=== PATIENT | female | born 1945 | race Asian ===

== ENCOUNTER → 2018-07-29 | Outpatient (CLI) | payer MEDICARE, OTHER | LOC: MC.RAD 13:40 | DX: Z12.31 Encounter for screening mammogram for malignant neoplasm of breast (principal); C50.411 Malignant neoplasm of upper-outer quadrant of right female breast ==

== ENCOUNTER → 2019-04-13 | Day surgery (SDC) | payer MEDICARE, OTHER ==
[2019-04-13] VITALS (10 sets, daily range): BP systolic 116–144; BP diastolic 66–88; PULSE 73–82; TEMP 97.8–97.9
[~2019-04-13] VITALS: Ht 154.9 cm; Wt 44.0 kg
[~2019-04-13] MED LIST: ASPIRIN 81M81 MG/TA2 PO; CATAPRES 0.1MG0.1 MG PO; CLARITIN 1010 MG/TAB PO; COLACE 100100 MG/CAP PO; GLUCOPHAGE XR500 M1 PO; LIPITOR20 MG PO; MICARDIS80 MG PO; NORVASC 10MG10 MG PO; PAXIL 20MG20 MG PO; PRIL40 PO
--- NOTE | 2019-04-13 09:50 | NUR ---
PATIENT TO BAY 3 PER CART ACCOMPANIED BY ENDO STAFF. PATIENT TRANSFERRED FROM CART TO CHAIR WITH 2 ASSIST. ALITTLE UNSTEADY GAIT. PATIENT DROWSY. PT RESPONDS WITH EYES CLOSED BUT DOES ANSWER QUESTIONS. MONITORS APPLIED. VSS.
--- NOTE | 2019-04-13 10:00 | NUR ---
VSS. PATIENT ALITTLE MORE ALERT. PATIENT ABLE TO SWALLOW. PATIENT DENIES NAUSEA AND DISCOMFORT. PATIENT GIVEN GRAPE JUICE AND PUDDING.
--- NOTE | 2019-04-13 10:15 | NUR ---
VSS. PATIENT DENIES NAUSEA AND DISCOMFORT. PATIENT DRINKING JUICE AND EATING PUDDING. PATIENT MORE ALERT.
--- NOTE | 2019-04-13 10:30 | NUR ---
VSS. PATIENT STATES THAT SHE DOES NOT HAVE SOMEONE TO TAKE HER HOME. SHE WILL NEED TO DRIVE HERSELF HOME. PATIENT DENIES NAUSEA AND DISCOMFORT.
--- NOTE | 2019-04-13 11:00 | NUR ---
VSS. PATIENT DRINKING JUICE AND EATING A MUFFIN. PATIENT ALERT AND TALKING WITH STAFF.
--- NOTE | 2019-04-13 11:28 | NUR ---
VSS. PATIENT ENCOURAGED TO CONTINUE TO DRINK FLUIDS. PATIENT RESTS WITH EYES CLOSED WHEN NO ONE IS IN ROOM.
--- NOTE | 2019-04-13 12:00 | NUR ---
VSS. PATIENT GIVEN VERBAL AND WRITTEN DISCHARGE INSTUCTIONS. PATIENT VOICED UNDERSTANDING. PATIENT GETS DRESSED AND WILL WAIT IN ROOM UNTIL ABLE TO LEAVE.
--- NOTE | 2019-04-13 12:24 | NUR ---
VSS. PATIENT DENIES NAUSEA AND DISCOMFORT. IV DC'D INTACT. PATIENT CONTINUES TO STATE THAT SHE DOES NOT HAVE A RIDE HOME. SHE WILL NEED TO DRIVE.
--- NOTE | 2019-04-13 13:30 | NUR ---
VSS. PATIENT HAS CHANGED CLOTHES AND WAITING. PATIENT HAS BEEN UP TO THE BATHROOM AND VOIDED WITHOUT PROBLEMS. DR PUENTE IN ROOM AND TALKING WITH PATIENT. ENDO STAFF AND DR PUENTE HAVE SPOKEN USING THE LANGUAGE LINE WITH PATIENT AND PATIENT IS WILLING TO STAY THE NIGHT SINCE SHE DROVE HERSELF AND HAS NO RIDE. HOUSE SUPERVISER CONTACTED AND ROOM 348 HAS BEEN GIVEN.
== END ==
LOC: SDCO 06:34
DX: Z12.11 Encounter for screening for malignant neoplasm of colon (principal); D12.2 Benign neoplasm of ascending colon; K55.20 Angiodysplasia of colon without hemorrhage; K62.89 Other specified diseases of anus and rectum; K63.3 Ulcer of intestine; K21.9 Gastro-esophageal reflux disease without esophagitis; D13.1 Benign neoplasm of stomach; K29.50 Unspecified chronic gastritis without bleeding; K52.9 Noninfective gastroenteritis and colitis, unspecified; K59.00 Constipation, unspecified; K44.9 Diaphragmatic hernia without obstruction or gangrene; Z88.0 Allergy status to penicillin; Z79.82 Long term (current) use of aspirin; Z79.84 Long term (current) use of oral hypoglycemic drugs; Z90.710 Acquired absence of both cervix and uterus; Z85.3 Personal history of malignant neoplasm of breast; Z90.10 Acquired absence of unspecified breast and nipple
CPT/HCPCS: J2250; J3010; J7030

== ENCOUNTER → 2019-07-19 | Outpatient (CLI) | payer MEDICARE, OTHER | LOC: MC.RAD 15:41 | DX: Z12.31 Encounter for screening mammogram for malignant neoplasm of breast (principal); N64.89 Other specified disorders of breast; C50.411 Malignant neoplasm of upper-outer quadrant of right female breast ==

== ENCOUNTER → 2019-07-21 | Outpatient (CLI) | payer MEDICARE, OTHER | LOC: MC.RAD 10:55 | DX: Z85.3 Personal history of malignant neoplasm of breast (principal) | CPT/HCPCS: G0279 ==

== ENCOUNTER → 2019-08-02 | Outpatient (CLI) | payer MEDICARE, OTHER | LOC: COL.RAD 14:40 | DX: M50.321 Other cervical disc degeneration at C4-C5 level (principal); E04.9 Nontoxic goiter, unspecified; G89.29 Other chronic pain ==

== ENCOUNTER 2020-05-31 12:05 | Emergency (ER) | payer MEDICARE, OTHER ==
[~2020-05-31] VITALS: Ht 152.4 cm; Wt 61.4 kg
[2020-05-31 12:15] VITALS: TEMP 98.2
[2020-05-31 13:19] LABS: BASO % 0.3 % (0.0-2.0); EOS # 0.1 (0.0-0.7); EOS % 1.4 % (0-4.0); GRAN # 1.5 (1.4-6.5); GRAN % 40.8 % (42.2-75.2); LYMPH # 1.6 (1.2-3.4); LYMPH % 44.7 % (20.0-51.0); MEAN CELL VOLUME 82 fl (80.0-100.0); MEAN CORPUSCULAR HEMOGLOBIN 29 pg (27.0-31.0); MEAN CORPUSCULAR HGB CONC 35 g/dl (33.0-37.0); MEAN PLATELET VOLUME 9.7 fl (7.4-10.4); MONO # 0.5 (0.1-0.6); MONO % 12.5 % (1.7-9.3); PLATELET COUNT 236 K/mm3 (130-400); RED BLOOD COUNT 3.83 M/mm3 (4.10-5.30); REDCELL DISTRIBUTION WIDTH-CV 12.9 % (11.5-14.5)
[2020-05-31 13:20] LABS: HEMATOCRIT 31.4 % (37.0-47.0)
[2020-05-31 13:41] LABS: ALANINE AMINOTRANSFERASE 29 U/L (4-34); ALBUMIN 3.9 gm/dL (3.5-5.0); ALKALINE PHOSPHATASE 95 U/L (50-136); ANION GAP 5 mmol/L (7-16); AST,SGOT 36 U/L (15-37); BILIRUBIN,TOTAL 0.9 mg/dL (0.0-1.0); BLOOD UREA NITROGEN 12 mg/dL (7-17); CALCIUM 10.1 mg/dL (8.4-10.2); CARBON DIOXIDE 34 mmol/L (22-30); CHLORIDE 102 mmol/L (98-107); CREATININE, serum 0.57 (0.52-1.25); GLUCOSE 106 mg/dL (74-106); POTASSIUM 3.2 mmol/L (3.4-5.0); SODIUM 141 mmol/L (137-145)
[2020-05-31 13:42] LABS: ERYTHROCYTE SEDIMENTATION RATE 7 mm/hr (0-30)
[2020-05-31 13:44] LABS: C-REACTIVE PROTEIN < 0.5 mg/dL (0.0-0.9)
[2020-05-31 13:55] LABS: TROPONIN-I < 0.012 ng/mL (0.000-0.035)
[2020-05-31] MEDS ORDERED: K-TAB20 PO (14:07)
[2020-05-31 14:09] LABS: TSH w REFLEX 0.015 uIU/mL (0.465-4.680)
[2020-05-31 14:58] LABS: COLLECTION METHOD CLEAN CATCH
[2020-05-31 15:07] LABS: PH 7 (5-8); SQUAMOUS EPITHELIAL 0-2 /hpf; URINE APPEARANCE Clear; URINE BACTERIA None Seen /hpf; URINE BILIRUBIN Negative (NEGATIVE); URINE BLOOD Negative (NEGATIVE); URINE COLOR Straw; URINE GLUCOSE Negative (NEGATIVE); URINE KETONE Negative (NEGATIVE); URINE LEUKOCYTE ESTERASE Negative (NEGATIVE); URINE NITRATE Negative (NEGATIVE); URINE PROTEIN(semi-quant) Negative (NEGATIVE); URINE RBC None Seen /hpf; URINE UROBILINOGEN Negative (NEGATIVE)
[2020-05-31] MEDS ORDERED: INDERAL60 MG PO (15:18)
[2020-05-31 15:49] VITALS: BP 139/74; PULSE 85
== END 2020-05-31 15:40 | disposition home or self-care (01) ==
LOC: COL.ER 12:05
PROVIDERS: Emergency Medicine
DX: E87.6 Hypokalemia (principal); R10.13 Epigastric pain; R94.6 Abnormal results of thyroid function studies; I10 Essential (primary) hypertension; E05.90 Thyrotoxicosis, unspecified without thyrotoxic crisis or storm; Z88.0 Allergy status to penicillin; Z79.82 Long term (current) use of aspirin; Z79.84 Long term (current) use of oral hypoglycemic drugs
CPT/HCPCS: J1885

== ENCOUNTER → 2020-08-22 | Outpatient (CLI) | payer MEDICARE, OTHER ==
[~2020-08-22] MED LIST changes: +INDERAL60 MG PO; +K-TAB20 PO
== END ==
LOC: MC.RAD 13:09
DX: Z12.31 Encounter for screening mammogram for malignant neoplasm of breast (principal); Z90.11 Acquired absence of right breast and nipple; Z80.3 Family history of malignant neoplasm of breast

== ENCOUNTER 2020-10-14 14:07 | Emergency (ER) | payer MEDICARE, OTHER ==
[~2020-10-14] VITALS: Ht 154.9 cm; Wt 54.5 kg
[2020-10-14 14:10] VITALS: BP 122/76; TEMP 97.9
[2020-10-14 14:23] LABS: COLLECTION METHOD CLEAN CATCH
[2020-10-14 14:32] LABS: PH 7 (5-8); SQUAMOUS EPITHELIAL 0-2 /hpf; URINE APPEARANCE Hazy; URINE BACTERIA None Seen /hpf; URINE BILIRUBIN Negative (NEGATIVE); URINE BLOOD Negative (NEGATIVE); URINE COLOR Yellow; URINE GLUCOSE Negative (NEGATIVE); URINE KETONE Negative (NEGATIVE); URINE LEUKOCYTE ESTERASE Negative (NEGATIVE); URINE NITRATE Negative (NEGATIVE); URINE PROTEIN(semi-quant) Negative (NEGATIVE); URINE RBC 0-2 /hpf; URINE UROBILINOGEN Negative (NEGATIVE)
[2020-10-14 14:42] LABS: BASO % 0.7 % (0.0-2.0); EOS # 0.1 (0.0-0.7); EOS % 1.1 % (0-4.0); GRAN # 2.1 (1.4-6.5); GRAN % 47.1 % (42.2-75.2); HEMOGLOBIN 12.2 g/dl (12.5-16.0); LYMPH # 1.9 (1.2-3.4); LYMPH % 43.2 % (20.0-51.0); MEAN CELL VOLUME 83 fl (80.0-100.0); MEAN CORPUSCULAR HEMOGLOBIN 28 pg (27.0-31.0); MEAN CORPUSCULAR HGB CONC 34 g/dl (33.0-37.0); MEAN PLATELET VOLUME 9.8 fl (7.4-10.4); MONO # 0.4 (0.1-0.6); MONO % 7.9 % (1.7-9.3); PLATELET COUNT 240 K/mm3 (130-400); RED BLOOD COUNT 4.36 M/mm3 (4.10-5.30); REDCELL DISTRIBUTION WIDTH-CV 13.9 % (11.5-14.5)
[2020-10-14 14:51] LABS: ALANINE AMINOTRANSFERASE 19 U/L (4-34); ALBUMIN 4.3 gm/dL (3.5-5.0); ALKALINE PHOSPHATASE 201 U/L (50-136); ANION GAP 7 mmol/L (7-16); AST,SGOT 33 U/L (15-37); BILIRUBIN,TOTAL 0.5 mg/dL (0.0-1.0); BLOOD UREA NITROGEN 16 mg/dL (7-17); CALCIUM 9.7 mg/dL (8.4-10.2); CARBON DIOXIDE 27 mmol/L (22-30); CHLORIDE 104 mmol/L (98-107); CREATININE, serum 0.59 (0.52-1.25); GLUCOSE 86 mg/dL (74-106); POTASSIUM 4.2 mmol/L (3.4-5.0); SODIUM 138 mmol/L (137-145); TOTAL PROTEIN 7.6 gm/dL (6.4-8.2)
[2020-10-14 15:03] LABS: TROPONIN-I < 0.012 ng/mL (0.000-0.035)
[2020-10-14 15:21] LABS: TSH w REFLEX 0.015 uIU/mL (0.465-4.680)
[2020-10-14 16:48] VITALS: PULSE 91
[2021-06-02] MEDS ORDERED: ATIVAN 0.50.5 MG/TAB PO (15:34)
== END 2020-10-14 16:48 | disposition home or self-care (01) ==
LOC: COL.ER 14:07
PROVIDERS: Emergency Medicine
DX: F22 Delusional disorders (principal); Z20.822 Contact with and (suspected) exposure to COVID-19; Z88.0 Allergy status to penicillin; Z79.82 Long term (current) use of aspirin; Z79.84 Long term (current) use of oral hypoglycemic drugs

== ENCOUNTER 2021-01-06 16:15 | Emergency (ER) | payer OTHER, MEDICARE ==
[~2021-01-06] VITALS: Ht 154.9 cm; Wt 60.9 kg
[2021-01-06 16:31] VITALS: TEMP 98
[2021-01-06] MEDS ORDERED: OPCON-A 0.027%-15 M1 OP (18:15)
[2021-01-06] MEDS ORDERED: AKTOB 5 ML5 ML OP (18:15)
[2021-01-06 18:23] VITALS: BP 128/77; PULSE 80
[2021-06-02] MEDS ORDERED: ATIVAN 0.50.5 MG/TAB PO (15:34)
== END 2021-01-06 18:23 | disposition home or self-care (01) ==
LOC: COL.ER 16:15
DX: H53.8 Other visual disturbances (principal)

== ENCOUNTER 2021-01-07 15:46 | Emergency (ER) | payer OTHER, MEDICARE ==
[~2021-01-07 15:46] MED LIST changes: +AKTOB 5 ML5 ML OP; +OPCON-A 0.027%-15 M1 OP
[2021-01-07 15:49] VITALS: TEMP 98.4
[2021-01-07 17:05] LABS: BASO % 0.6 % (0.0-2.0); EOS % 0.8 % (0-4.0); GRAN % 56.7 % (42.2-75.2); HEMATOCRIT 39.5 % (37.0-47.0); HEMOGLOBIN 13.4 g/dl (12.5-16.0); LYMPH # 1.7 (1.2-3.4); LYMPH % 31.9 % (20.0-51.0); MEAN CELL VOLUME 88 fl (80.0-100.0); MEAN CORPUSCULAR HEMOGLOBIN 30 pg (27.0-31.0); MEAN CORPUSCULAR HGB CONC 34 g/dl (33.0-37.0); MEAN PLATELET VOLUME 8.8 fl (7.4-10.4); MONO # 0.5 (0.1-0.6); MONO % 9.8 % (1.7-9.3); PLATELET COUNT 269 K/mm3 (130-400); RED BLOOD COUNT 4.48 M/mm3 (4.10-5.30); REDCELL DISTRIBUTION WIDTH-CV 13.2 % (11.5-14.5)
[2021-01-07 17:11] LABS: COLLECTION METHOD CLEAN CATCH
[2021-01-07 17:15] LABS: ALBUMIN 4.4 gm/dL (3.5-5.0); BILIRUBIN,TOTAL 0.3 mg/dL (0.0-1.0); CALCIUM 10.2 mg/dL (8.4-10.2); CREATININE, serum 0.61 (0.52-1.25); POTASSIUM 4.7 mmol/L (3.4-5.0); TOTAL PROTEIN 8.3 gm/dL (6.4-8.2)
[2021-01-07 17:17] LABS: PH 7 (5-8); SQUAMOUS EPITHELIAL 0-2 /hpf; URINE APPEARANCE Clear; URINE BACTERIA None Seen /hpf; URINE BILIRUBIN Negative (NEGATIVE); URINE BLOOD Negative (NEGATIVE); URINE COLOR Straw; URINE GLUCOSE Negative (NEGATIVE); URINE KETONE Negative (NEGATIVE); URINE LEUKOCYTE ESTERASE Negative (NEGATIVE); URINE NITRATE Negative (NEGATIVE); URINE PROTEIN(semi-quant) Negative (NEGATIVE); URINE RBC 0-2 /hpf; URINE UROBILINOGEN Negative (NEGATIVE)
[2021-01-07 20:27] VITALS: BP 139/78; PULSE 83
[2021-06-02] MEDS ORDERED: ATIVAN 0.50.5 MG/TAB PO (15:34)
== END 2021-01-07 20:16 | disposition home or self-care, planned readmission (81) ==
LOC: COL.ER 15:46
PROVIDERS: Family Medicine
DX: F41.9 Anxiety disorder, unspecified (principal); E05.90 Thyrotoxicosis, unspecified without thyrotoxic crisis or storm; Z87.891 Personal history of nicotine dependence; Z79.899 Other long term (current) drug therapy

== ENCOUNTER 2021-04-29 15:01 | Emergency (ER) | payer OTHER, MEDICARE ==
[~2021-04-29] VITALS: Ht 154.9 cm; Wt 54.5 kg
[2021-04-29 15:03] VITALS: TEMP 97.6
[2021-04-29 15:43] LABS: BASO % 0.6 % (0.0-2.0); EOS # 0.1 (0.0-0.7); EOS % 1.7 % (0-4.0); GRAN # 4.8 (1.4-6.5); GRAN % 72.9 % (42.2-75.2); HEMOGLOBIN 12.5 g/dl (12.5-16.0); LYMPH # 1.2 (1.2-3.4); LYMPH % 17.8 % (20.0-51.0); MEAN CELL VOLUME 87 fl (80.0-100.0); MEAN CORPUSCULAR HEMOGLOBIN 30 pg (27.0-31.0); MEAN CORPUSCULAR HGB CONC 35 g/dl (33.0-37.0); MEAN PLATELET VOLUME 8.8 fl (7.4-10.4); MONO # 0.5 (0.1-0.6); MONO % 6.8 % (1.7-9.3); PLATELET COUNT 279 K/mm3 (130-400); RED BLOOD COUNT 4.13 M/mm3 (4.10-5.30); REDCELL DISTRIBUTION WIDTH-CV 13.7 % (11.5-14.5)
[2021-04-29 15:46] LABS: COLLECTION METHOD CLEAN CATCH
[2021-04-29 15:49] LABS: ALBUMIN 3.7 gm/dL (3.4-4.8); BILIRUBIN,TOTAL 0.5 mg/dL (0.2-1.2); CALCIUM 7.3 mg/dL (8.4-10.2); CREATININE, serum 0.86 mg/dL (0.57-1.11); POTASSIUM 3.7 mmol/L (3.5-4.5); TOTAL PROTEIN 7.5 gm/dL (6.2-8.1)
[2021-04-29 15:55] LABS: MUCOUS Present /lpf; PH 8 (5-8); SQUAMOUS EPITHELIAL 0-2 /hpf; URINE APPEARANCE Hazy; URINE BACTERIA None Seen /hpf; URINE BILIRUBIN Negative (NEGATIVE); URINE BLOOD Negative (NEGATIVE); URINE COLOR Yellow; URINE GLUCOSE Negative (NEGATIVE); URINE KETONE Negative (NEGATIVE); URINE LEUKOCYTE ESTERASE Negative (NEGATIVE); URINE NITRATE Negative (NEGATIVE); URINE PROTEIN(semi-quant) Negative (NEGATIVE); URINE RBC None Seen /hpf; URINE UROBILINOGEN Negative (NEGATIVE)
[2021-04-29 16:01] LABS: HEMATOCRIT 35.8 % (37.0-47.0)
[2021-04-29 16:09] LABS: TSH w REFLEX 50.179 uIU/mL (0.350-4.940)
[2021-04-29] MEDS ORDERED: SYNTHROID0.112 MG/T PO (17:31)
[2021-04-29 17:35] VITALS: BP 138/82; PULSE 85
[2021-06-02] MEDS ORDERED: ATIVAN 0.50.5 MG/TAB PO (15:34)
== END 2021-04-29 18:08 | disposition home or self-care (01) ==
LOC: COL.ER 15:01
PROVIDERS: Emergency Medicine
DX: E89.0 Postprocedural hypothyroidism (principal); E87.1 Hypo-osmolality and hyponatremia; E87.8 Other disorders of electrolyte and fluid balance, not elsewhere classified; Z91.14 Patient's other noncompliance with medication regimen
CPT/HCPCS: J7120; Q9967

== ENCOUNTER 2021-05-05 08:28 | Emergency (ER) | payer MEDICARE, OTHER ==
[~2021-05-05] VITALS: Ht 154.9 cm; Wt 68.2 kg
[~2021-05-05 08:28] MED LIST changes: +SYNTHROID0.112 MG/T PO
[2021-05-05 08:40] VITALS: TEMP 97.2
[2021-05-05 09:16] LABS: COLLECTION METHOD CATHETER
[2021-05-05 09:29] LABS: PH 8 (5-8); SQUAMOUS EPITHELIAL None Seen /hpf; URINE APPEARANCE Clear; URINE BACTERIA None Seen /hpf; URINE BILIRUBIN Negative (NEGATIVE); URINE BLOOD Negative (NEGATIVE); URINE COLOR Straw; URINE GLUCOSE Negative (NEGATIVE); URINE KETONE Negative (NEGATIVE); URINE LEUKOCYTE ESTERASE Negative (NEGATIVE); URINE NITRATE Negative (NEGATIVE); URINE PROTEIN(semi-quant) Negative (NEGATIVE); URINE RBC None Seen /hpf; URINE UROBILINOGEN Negative (NEGATIVE)
[2021-05-05 09:40] LABS: BASO # 0.1 (0.0-0.2); BASO % 0.8 % (0.0-2.0); EOS # 0.1 (0.0-0.7); EOS % 1.3 % (0-4.0); GRAN # 4.7 (1.4-6.5); GRAN % 74.3 % (42.2-75.2); HEMOGLOBIN 12.6 g/dl (12.5-16.0); LYMPH # 1.1 (1.2-3.4); LYMPH % 17.6 % (20.0-51.0); MEAN CELL VOLUME 83 fl (80.0-100.0); MEAN CORPUSCULAR HEMOGLOBIN 30 pg (27.0-31.0); MEAN CORPUSCULAR HGB CONC 36 g/dl (33.0-37.0); MEAN PLATELET VOLUME 8.6 fl (7.4-10.4); MONO # 0.4 (0.1-0.6); MONO % 5.7 % (1.7-9.3); PLATELET COUNT 247 K/mm3 (130-400); RED BLOOD COUNT 4.21 M/mm3 (4.10-5.30)
[2021-05-05 09:41] LABS: HEMATOCRIT 35.1 % (37.0-47.0)
[2021-05-05 09:55] LABS: ALBUMIN 3.9 gm/dL (3.4-4.8); BILIRUBIN,TOTAL 1.1 mg/dL (0.2-1.2); CREATININE, serum 0.74 mg/dL (0.57-1.11); POTASSIUM 3.5 mmol/L (3.5-4.5); TOTAL PROTEIN 7.5 gm/dL (6.2-8.1)
[2021-05-05 11:33] VITALS: BP 139/85; PULSE 67
[2021-06-02] MEDS ORDERED: ATIVAN 0.50.5 MG/TAB PO (15:34)
== END 2021-05-05 11:33 | disposition home or self-care (01) ==
LOC: COL.ER 08:28
PROVIDERS: Personal Emergency Response Attendant
DX: R33.9 Retention of urine, unspecified (principal); E05.90 Thyrotoxicosis, unspecified without thyrotoxic crisis or storm; Z88.0 Allergy status to penicillin; Z79.890 Hormone replacement therapy
CPT/HCPCS: A4314

== ENCOUNTER 2021-05-05 15:25 | Emergency (ER) | payer OTHER, MEDICARE ==
[~2021-05-05] VITALS: Ht 154.9 cm; Wt 68.2 kg
[2021-05-05 16:06] VITALS: BP 125/77; PULSE 92; TEMP 98
[2021-06-02] MEDS ORDERED: ATIVAN 0.50.5 MG/TAB PO (15:34)
== END 2021-05-05 17:21 | disposition home or self-care (01) ==
LOC: COL.ER 15:25
DX: R33.9 Retention of urine, unspecified (principal); E05.90 Thyrotoxicosis, unspecified without thyrotoxic crisis or storm; Z88.0 Allergy status to penicillin; Z79.890 Hormone replacement therapy

== ENCOUNTER 2021-05-25 20:14 | Inpatient (IN) | payer MEDICARE, OTHER ==
[~2021-05-25] VITALS: Ht 154.9 cm; Wt 64.9 kg
[2021-05-25 21:06] LABS: BASO % 0.4 % (0.0-2.0); EOS % 0.1 % (0-4.0); GRAN # 6.7 K/mm3 (1.4-6.5); GRAN % 81.9 % (42.2-75.2); HEMOGLOBIN 10.5 g/dl (12.5-16.0); LYMPH # 0.9 K/mm3 (1.2-3.4); LYMPH % 10.9 % (20.0-51.0); MEAN CELL VOLUME 88 fl (80.0-100.0); MEAN CORPUSCULAR HEMOGLOBIN 31 pg (27.0-31.0); MEAN CORPUSCULAR HGB CONC 35 g/dl (33.0-37.0); MEAN PLATELET VOLUME 8.9 fl (7.4-10.4); MONO # 0.5 K/mm3 (0.1-0.6); MONO % 6.5 % (1.7-9.3); PLATELET COUNT 211 K/mm3 (130-400); REDCELL DISTRIBUTION WIDTH-CV 14.1 % (11.5-14.5)
[2021-05-25 21:10] LABS: HEMATOCRIT 29.9 % (37.0-47.0)
[2021-05-25 21:22] LABS: ALBUMIN 3.7 gm/dL (3.4-4.8); BILIRUBIN,TOTAL 1.3 mg/dL (0.2-1.2); CREATININE, serum 0.76 mg/dL (0.57-1.11); POTASSIUM 3.2 mmol/L (3.5-4.5); TOTAL PROTEIN 7.5 gm/dL (6.2-8.1)
[2021-05-25 21:29] LABS: TROPONIN-I 0.035 ng/mL (0.00-0.033)
[2021-05-26 00:52] VITALS: BP 122/74; PULSE 98; TEMP 98.8
[2021-05-26 01:25] LABS: C-REACTIVE PROTEIN 14.82 mg/dL (0.00-0.50); MAGNESIUM 1.7 mg/dL (1.6-2.6); PHOSPHOROUS 4.4 mg/dL (2.3-4.7)
--- NOTE | 2021-05-26 01:38 | NUR ---
ADMIT FROM ER ALERT AND OX4. UP IND IN ROOM VOIDING, HAT CATCHING URINE FOR I/O. COUGH AND WEAK FOR DAYS NOW. LUNGS COURSE RHONCHI UPPER. DIM LOWER. POC REVIEWED. CALL LIGHT WI KELSIE. IVANA PLACING ORDERS FOR ADMIT.
[2021-05-26 01:45] LABS: THYROID STIMULATING HORMONE 17.49 uIU/mL (0.350-4.940)
[2021-05-26] MEDS ORDERED: CALCIUM CITRAT200 M2 PO (03:01)
[2021-05-26] MEDS ORDERED: CALCITRIOL PO ×2 (03:01)
[2021-05-26] MEDS ORDERED: KLONOPIN 0.5MG0.5 MG PO (03:03)
[2021-05-26] MEDS ORDERED: MIRALAX PA17 GM/Dose PO (03:18)
[2021-05-26 04:57] VITALS: BP 120/66; PULSE 87; TEMP 98.7
[2021-05-26 07:03] LABS: BASO % 0.5 % (0.0-2.0); EOS % 0.5 % (0-4.0); GRAN # 6.4 K/mm3 (1.4-6.5); GRAN % 81.7 % (42.2-75.2); HEMOGLOBIN 10.5 g/dl (12.5-16.0); LYMPH # 0.9 K/mm3 (1.2-3.4); LYMPH % 11.1 % (20.0-51.0); MEAN CELL VOLUME 86 fl (80.0-100.0); MEAN CORPUSCULAR HEMOGLOBIN 30 pg (27.0-31.0); MEAN CORPUSCULAR HGB CONC 36 g/dl (33.0-37.0); MEAN PLATELET VOLUME 9.6 fl (7.4-10.4); MONO # 0.5 K/mm3 (0.1-0.6); MONO % 6.1 % (1.7-9.3); PLATELET COUNT 225 K/mm3 (130-400); RED BLOOD COUNT 3.46 M/mm3 (4.10-5.30); REDCELL DISTRIBUTION WIDTH-CV 13.8 % (11.5-14.5)
[2021-05-26 07:05] LABS: HEMATOCRIT 29.6 % (37.0-47.0)
[2021-05-26 07:12] LABS: ANION GAP 12 mmol/L (7-16); BLOOD UREA NITROGEN 16 mg/dL (10-20); CALCIUM 6.7 mg/dL (8.4-10.2); CARBON DIOXIDE 22 mmol/L (23-31); CHLORIDE 99 mmol/L (98-107); CREATININE, serum 0.73 mg/dL (0.57-1.11); GLUCOSE 122 mg/dL (70-99); POTASSIUM 3.4 mmol/L (3.5-4.5); SODIUM 133 mmol/L (136-145)
[2021-05-26 07:15] LABS: INR 1.3 (0.8-3.0)
[2021-05-26 07:22] LABS: ACETAMINOPHEN < 1.0 ug/mL (10-30)
--- NOTE | 2021-05-26 08:00 | NUR ---
Patient at the door asking when she is going to get food and more water. Nursing staff continually informing the patient that food is on the way up. A&Ox3. VSS 2L NC O2. No reported SOB. Denies pain and discomfort. IV CDI. Patient instructed to stay in her room. Patient verbalizes an understanding. Call light within reach
[2021-05-26 08:53] VITALS: BP 97/59; PULSE 96; TEMP 97.9
[2021-05-26 12:10] VITALS: BP 104/68; PULSE 89; TEMP 98.8
--- NOTE | 2021-05-26 13:09 | NUR ---
general foundry worker met with patient to discuss discharge plan. Patient doesn't speak nepali very well and her medical condition creates a barrier as well. What i could gather is that she lives in [facility] at home alone. What asked if she would independent with her ADL's the patient shakes her head yes. When asked if she uses a cane or a walker to assist with mobility she shakes her head no. Patient is currently on O2 within the room but when asked if she has oxygen at home she say's no. Say's she see's a Dr at [place] for a PCP and receives her medications through the . Unsure if she has a DPOA-HC but says her son Phill ([phone]) would make all of her decisions. Patient would like to return home post dc. Phone call placed to her son but was unsuccessful. Discharge plan: Home
[2021-05-26 14:30] LABS: IRON,SERUM 31 ug/dL (35-150)
[2021-05-26 14:39] LABS: TOTAL IRON BINDING CAPACITY 368 ug/dL (265-497)
[2021-05-26 15:47] VITALS: BP 113/95; PULSE 103; TEMP 98.4
[2021-05-26 16:01] LABS: COLLECTION METHOD CATHETER
[2021-05-26 16:15] LABS: PH 7 (5-8); SQUAMOUS EPITHELIAL 0-2 /hpf; URINE APPEARANCE Clear; URINE BACTERIA None Seen /hpf; URINE BILIRUBIN Negative (NEGATIVE); URINE BLOOD Negative (NEGATIVE); URINE COLOR Yellow; URINE GLUCOSE Negative (NEGATIVE); URINE KETONE Negative (NEGATIVE); URINE LEUKOCYTE ESTERASE Negative (NEGATIVE); URINE NITRATE Negative (NEGATIVE); URINE PROTEIN(semi-quant) Negative (NEGATIVE); URINE RBC 0-2 /hpf
[2021-05-26 16:19] LABS: TRICYCLIC ANTIDEPRESS URINE NEGATIVE
--- NOTE | 2021-05-26 17:47 | NUR ---
Patient has been walking out to the doorway throughout the shift and nursing staff instructing the patient to stay in the room to reduced the risk of falling. Patient verbalizes an understanding, but continues to walk to the doorway. A&Ox3. VSS 2L NC O2, reported hemoptysis, doctor aware. Reports pain in legs, pain medication given when requested. Call light within reach
[2021-05-26 19:36] VITALS: BP 139/79; PULSE 91; TEMP 98.6
[2021-05-27 00:57] VITALS: BP 105/80; PULSE 92; TEMP 98.9
[2021-05-27 03:48] VITALS: BP 147/84; PULSE 97; TEMP 97.6
--- NOTE | 2021-05-27 06:33 | NUR ---
PT ON 2L OXYGEN, HAS REQUESTED ASSISTANCE TO BATHROOM THIS SHIFT, STATES SHE "DOESN'T WANT TO FALL", LUNGS REMAIN COARSE/CONGESTED. ASKED FOR PAIN PILL THIS AM FOR GENERALIZED DISCOMFORT. TYLENOL 325MG GIVEN. BGM THIS AM 114. CONTINUALLY ASKS FOR MORE WATER, REMINDED OF FLUID RESTRICTION.
[2021-05-27 07:34] LABS: BASO % 0.4 % (0.0-2.0); EOS # 0.1 K/mm3 (0.0-0.7); GRAN # 5.4 K/mm3 (1.4-6.5); GRAN % 75.3 % (42.2-75.2); HEMOGLOBIN 10.5 g/dl (12.5-16.0); LYMPH # 1.1 K/mm3 (1.2-3.4); MEAN CELL VOLUME 86 fl (80.0-100.0); MEAN CORPUSCULAR HEMOGLOBIN 31 pg (27.0-31.0); MEAN CORPUSCULAR HGB CONC 36 g/dl (33.0-37.0); MEAN PLATELET VOLUME 9.6 fl (7.4-10.4); MONO # 0.6 K/mm3 (0.1-0.6); MONO % 8.2 % (1.7-9.3); PLATELET COUNT 244 K/mm3 (130-400); RED BLOOD COUNT 3.44 M/mm3 (4.10-5.30); REDCELL DISTRIBUTION WIDTH-CV 14.1 % (11.5-14.5)
[2021-05-27 07:37] LABS: HEMATOCRIT 29.6 % (37.0-47.0)
[2021-05-27 07:41] VITALS: BP 121/74; PULSE 93; TEMP 98.1
[2021-05-27 07:47] LABS: ALBUMIN 3.4 gm/dL (3.4-4.8); BILIRUBIN,TOTAL 1.3 mg/dL (0.2-1.2); CALCIUM 6.7 mg/dL (8.4-10.2); CREATININE, serum 0.87 mg/dL (0.57-1.11); POTASSIUM 3.6 mmol/L (3.5-4.5); TOTAL PROTEIN 7.1 gm/dL (6.2-8.1)
[2021-05-27 08:10] LABS: BILIRUBIN,DIRECT 0.7 mg/dL (0.0-0.5)
--- NOTE | 2021-05-27 08:28 | NUR ---
Pt sleeping upon entry to room, hard to wake. No C/O pain at this time. Shift assessment complete, left Pt call light in reach, bed in lowest position.
[2021-05-27 11:26] VITALS: BP 119/67; PULSE 89; TEMP 98
--- NOTE | 2021-05-27 12:47 | NUR ---
Initial visit attempt; Patient sleeping, Information Technology Officer left 'Prayer Card'. Along with a tara prayer Information Technology Officer left her name on the card with information how patient could get in touch with Information Technology Officer.
--- NOTE | 2021-05-27 15:13 | NUR ---
SW attempted to contact the patient's son, Phill, to review d/c plan. SW left him a voicemail.
--- NOTE | 2021-05-27 15:34 | NUR ---
SW met with the patient to review discharge plan. There is a language barrier. The patient states that she lives alone. She states that she has one child, Phill, and that he is a software support representative in the . She reports that he is stationed at [employer], but that he is at training in [place] right now and should be back in June or July. She reports that he does not want him contacted or to be bothered. The patient plans to return home upon discharge. She reports that she drove here and will drive herself back home. She is currently on 2 liters of oxygen. She reports that she does not have home oxygen. SW to continue to monitor. *Discharge plan: home*
[2021-05-27 15:52] VITALS: BP 121/87; PULSE 92; TEMP 98.3
[2021-05-27 19:20] VITALS: BP 127/75; PULSE 101; TEMP 97.5
--- NOTE | 2021-05-27 20:30 | NUR ---
Initial shift assessment done, VSS, on a fluid restriction- no free water- did give her some gatorade and she said she did like it,so no more constantly asking for water-- continues to curtain hemmer automatic her doorway, calling out for the nurse,, did spend some time with her and pt did seem to be calmer--understands the next anti anxiety is not till 0100. Tele on. o2 at 2L/nc. Understands that we do need to measure her urine so keep the hat in toilet-
[2021-05-28] VITALS (7 sets, daily range): BP systolic 109–137; BP diastolic 62–83; PULSE 84–110; TEMP 97.9–98.9
--- NOTE | 2021-05-28 05:11 | NUR ---
Has been sleeping/resting quietly for the past 5-6 hours-VSS
[2021-05-28 07:18] LABS: BASO # 0.1 K/mm3 (0.0-0.2); BASO % 0.9 % (0.0-2.0); EOS # 0.2 K/mm3 (0.0-0.7); EOS % 3.6 % (0-4.0); GRAN # 3.5 K/mm3 (1.4-6.5); HEMOGLOBIN 11.2 g/dl (12.5-16.0); LYMPH # 1.1 K/mm3 (1.2-3.4); LYMPH % 20.8 % (20.0-51.0); MEAN CELL VOLUME 88 fl (80.0-100.0); MEAN CORPUSCULAR HEMOGLOBIN 31 pg (27.0-31.0); MEAN CORPUSCULAR HGB CONC 35 g/dl (33.0-37.0); MEAN PLATELET VOLUME 9.4 fl (7.4-10.4); MONO # 0.6 K/mm3 (0.1-0.6); MONO % 11.5 % (1.7-9.3); PLATELET COUNT 289 K/mm3 (130-400); RED BLOOD COUNT 3.63 M/mm3 (4.10-5.30)
[2021-05-28 07:25] LABS: HEMATOCRIT 31.8 % (37.0-47.0)
[2021-05-28 07:43] LABS: CALCIUM 7.2 mg/dL (8.4-10.2); CREATININE, serum 1.29 mg/dL (0.57-1.11); POTASSIUM 3.6 mmol/L (3.5-4.5)
--- NOTE | 2021-05-28 08:00 | NUR ---
Pt awake upon entry, no C/O pain at this time. Shift assessment complete, left Pt call light in reach.
--- NOTE | 2021-05-28 14:57 | NUR ---
The patient's son, Phill, returned ABEL's phone call. Phill confirms that he is in [place] right now for training. He states that he will probably not be back until August. He reports that the patient's primary language is Frisian and that she has no other family here. He confirms that he is the patient's only child. Phill reports that there is a seven hour time difference, but he would be interested in an update from the PA or doctor tomorrow morning. ABEL notified the PA.
--- NOTE | 2021-05-28 20:00 | NUR ---
Patient is sitting in bed, alert and orientd x 4, VSS, expresses anxiety and wants to take lorazepan. Explained schedule times for medication. TELE in place, NSR. Pt very active around the room and the nursing station. Assessment completed, no further needs at this time, call light within reach.
[2021-05-29 04:05] VITALS: BP 129/80; PULSE 87; TEMP 97.7
--- NOTE | 2021-05-29 06:06 | NUR ---
Patient has been active along the night. She had some sleep from 2 to 6. She denies ches pain. She does not complies with O2 nasal canula, continuously removes it. O2 is at 0.5 L. Tele NSR. 2 Doses of K were given. Shift report will be given to day shift RN.
[2021-05-29 06:57] LABS: BASO % 0.7 % (0.0-2.0); EOS # 0.3 K/mm3 (0.0-0.7); EOS % 5.9 % (0-4.0); GRAN # 2.3 K/mm3 (1.4-6.5); GRAN % 52.1 % (42.2-75.2); HEMATOCRIT 33.4 % (37.0-47.0); HEMOGLOBIN 11.8 g/dl (12.5-16.0); LYMPH # 1.3 K/mm3 (1.2-3.4); LYMPH % 28.5 % (20.0-51.0); MEAN CELL VOLUME 87 fl (80.0-100.0); MEAN CORPUSCULAR HEMOGLOBIN 31 pg (27.0-31.0); MEAN CORPUSCULAR HGB CONC 35 g/dl (33.0-37.0); MONO # 0.6 K/mm3 (0.1-0.6); MONO % 12.6 % (1.7-9.3); PLATELET COUNT 310 K/mm3 (130-400); RED BLOOD COUNT 3.86 M/mm3 (4.10-5.30); REDCELL DISTRIBUTION WIDTH-CV 13.7 % (11.5-14.5)
[2021-05-29 07:22] LABS: ALBUMIN 3.4 gm/dL (3.4-4.8); BILIRUBIN,TOTAL 0.8 mg/dL (0.2-1.2); CREATININE, serum 1.14 mg/dL (0.57-1.11); POTASSIUM 3.7 mmol/L (3.5-4.5); TOTAL PROTEIN 7.7 gm/dL (6.2-8.1)
[2021-05-29 08:02] VITALS: BP 137/70; PULSE 100; TEMP 97.9
[2021-05-29] MEDS ORDERED: DOXYCYCLINE 10100 MG PO (09:29)
[2021-05-29] MEDS ORDERED: LASIX 20MG TABL20 MG PO (09:29)
[2021-05-29] MEDS ORDERED: BUSPAR5 MG PO (09:30)
[2021-05-29] MEDS ORDERED: TOPROL XL 25MG25 MG PO (09:31)
[2021-05-29] MEDS ORDERED: MICARDIS20 MG PO ×2 (09:31)
[2021-05-29] MEDS ORDERED: FERROUS SU325 MG/TAB PO (09:32)
[2021-05-29] MEDS ORDERED: PROAIR HFA0.09 MG/AC IH (09:33)
--- NOTE | 2021-05-29 10:30 | NUR ---
pt was ambulated aprox. 65 yards. Resting r/a sat was 95%. Her spo2 during exercise increased to 98% on room air. No oxygen was required
--- NOTE | 2021-05-29 11:15 | NUR ---
First visit from the contractor buyer. No needs right now.
[2021-05-29 11:25] VITALS: BP 130/74; PULSE 89; TEMP 98.4
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
--- NOTE | 2021-05-29 12:13 | NUR ---
PT DRIVING SELF HOME, VERIFIED WITH [facility] OKAY TO DO SO.
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
--- NOTE | 2021-05-29 14:52 | NUR ---
pt discharged. iv discontinued. Pt received 1500 medications. education given to best of ability.
[2021-06-02] MEDS ORDERED: ATIVAN 0.50.5 MG/TAB PO (15:34)
== END 2021-05-29 14:53 | disposition home or self-care (01) | DRG 280 ==
LOC: COL.ER 20:14 → MEDICAL 22:41
PROVIDERS: Emergency Medicine; Family Medicine; Internal Medicine Sleep Medicine; Nurse Practitioner Family; Physician Assistant
DX: I11.0 Hypertensive heart disease with heart failure (principal); J96.01 Acute respiratory failure with hypoxia; I21.A1 Myocardial infarction type 2; E87.1 Hypo-osmolality and hyponatremia; R04.2 Hemoptysis; N17.9 Acute kidney failure, unspecified; N14.1 Nephropathy induced by other drugs, medicaments and biological substances; T50.2X5A Adverse effect of carbonic-anhydrase inhibitors, benzothiadiazides and other diuretics, initial encounter; E78.5 Hyperlipidemia, unspecified; E87.6 Hypokalemia; E11.9 Type 2 diabetes mellitus without complications; K21.9 Gastro-esophageal reflux disease without esophagitis; D50.9 Iron deficiency anemia, unspecified; F32.A Depression, unspecified; F43.22 Adjustment disorder with anxiety; F22 Delusional disorders; E89.0 Postprocedural hypothyroidism; J20.9 Acute bronchitis, unspecified; I50.9 Heart failure, unspecified; B95.62 Methicillin resistant Staphylococcus aureus infection as the cause of diseases classified elsewhere; Z20.822 Contact with and (suspected) exposure to COVID-19; Z23 Encounter for immunization; Z88.0 Allergy status to penicillin; Z85.3 Personal history of malignant neoplasm of breast; Z86.718 Personal history of other venous thrombosis and embolism; Z87.891 Personal history of nicotine dependence
CPT/HCPCS: 99223-AI; 99232-AI; 99233-AI; 99239; J1650; J1940; J7512

== ENCOUNTER 2021-06-03 22:13 | Emergency (ER) | payer MEDICARE, OTHER ==
[~2021-06-03] VITALS: Ht 154.9 cm; Wt 59.1 kg
[~2021-06-03 22:13] MED LIST changes: +ATIVAN 0.50.5 MG/TAB PO; +BUSPAR5 MG PO; +CALCITRIOL PO; +CALCIUM CITRAT200 M2 PO; +DOXYCYCLINE 10100 MG PO; +FERROUS SU325 MG/TAB PO; +KLONOPIN 0.5MG0.5 MG PO; +LASIX 20MG TABL20 MG PO; +MICARDIS20 MG PO; +MIRALAX PA17 GM/Dose PO; +PROAIR HFA0.09 MG/AC IH; +TOPROL XL 25MG25 MG PO
[2021-06-03 23:01] LABS: BASO # 0.1 K/mm3 (0.0-0.2); BASO % 0.8 % (0.0-2.0); EOS # 0.1 K/mm3 (0.0-0.7); EOS % 0.9 % (0-4.0); GRAN # 4.6 K/mm3 (1.4-6.5); GRAN % 70.1 % (42.2-75.2); HEMOGLOBIN 10.9 g/dl (12.5-16.0); LYMPH # 1.3 K/mm3 (1.2-3.4); LYMPH % 19.9 % (20.0-51.0); MEAN CELL VOLUME 88 fl (80.0-100.0); MEAN CORPUSCULAR HEMOGLOBIN 30 pg (27.0-31.0); MEAN CORPUSCULAR HGB CONC 35 g/dl (33.0-37.0); MEAN PLATELET VOLUME 9.1 fl (7.4-10.4); MONO # 0.5 K/mm3 (0.1-0.6); PLATELET COUNT 349 K/mm3 (130-400); RED BLOOD COUNT 3.59 M/mm3 (4.10-5.30)
[2021-06-03 23:02] LABS: HEMATOCRIT 31.6 % (37.0-47.0)
[2021-06-03 23:29] LABS: ALBUMIN 3.4 gm/dL (3.4-4.8); BILIRUBIN,TOTAL 0.4 mg/dL (0.2-1.2); CREATININE, serum 0.83 mg/dL (0.57-1.11); POTASSIUM 4.5 mmol/L (3.5-4.5); TOTAL PROTEIN 6.9 gm/dL (6.2-8.1)
[2021-06-03 23:33] LABS: CALCIUM 5.8 mg/dL (8.4-10.2)
[2021-06-03 23:35] LABS: TROPONIN-I 0.015 ng/mL (0.00-0.033)
[2021-06-04 01:14] VITALS: BP 123/84; PULSE 87; TEMP 98.4
[2021-06-05] MEDS ORDERED: TOPROL XL 25MG25 MG PO (00:36)
== END 2021-06-04 01:14 | disposition home or self-care (01) ==
LOC: COL.ER 22:13
PROVIDERS: Physician Assistant
DX: F41.9 Anxiety disorder, unspecified (principal); E83.51 Hypocalcemia; I10 Essential (primary) hypertension; E78.5 Hyperlipidemia, unspecified; E11.9 Type 2 diabetes mellitus without complications; K21.9 Gastro-esophageal reflux disease without esophagitis; Z79.899 Other long term (current) drug therapy; Z91.14 Patient's other noncompliance with medication regimen; Z79.84 Long term (current) use of oral hypoglycemic drugs
CPT/HCPCS: J0610

== ENCOUNTER 2021-06-04 20:05 | Inpatient (IN) | payer MEDICARE, OTHER ==
[~2021-06-04] VITALS: Ht 154.9 cm; Wt 63.3 kg
[2021-06-04 20:46] LABS: ARTERIAL BLD GAS O2 SATURATION 91.5 % (92-100); ARTERIAL BLD GAS TCO2 CT 19.1; ARTERIAL BLOOD GAS BASE EXCESS -4.1 (-2-2); ARTERIAL BLOOD GAS HCO3 18.3 meq/L (22-26); ARTERIAL BLOOD GAS PCO2 25.6 mmHg (35-45); ARTERIAL BLOOD GAS PO2 59.8 mmHg (80-100); ARTERIAL BLOOD GAS pH 7.47 (7.35-7.45)
[2021-06-04 21:19] LABS: BASO % 0.4 % (0.0-2.0); EOS % 0.1 % (0-4.0); GRAN # 8.6 K/mm3 (1.4-6.5); GRAN % 80.5 % (42.2-75.2); HEMOGLOBIN 10.4 g/dl (12.5-16.0); LYMPH % 9.7 % (20.0-51.0); MEAN CELL VOLUME 87 fl (80.0-100.0); MEAN CORPUSCULAR HEMOGLOBIN 30 pg (27.0-31.0); MEAN CORPUSCULAR HGB CONC 35 g/dl (33.0-37.0); MEAN PLATELET VOLUME 8.9 fl (7.4-10.4); MONO % 8.9 % (1.7-9.3); PLATELET COUNT 303 K/mm3 (130-400); RED BLOOD COUNT 3.42 M/mm3 (4.10-5.30); REDCELL DISTRIBUTION WIDTH-CV 13.9 % (11.5-14.5)
[2021-06-04 21:23] LABS: HEMATOCRIT 29.8 % (37.0-47.0)
[2021-06-04 21:48] LABS: ALBUMIN 3.5 gm/dL (3.4-4.8); BILIRUBIN,TOTAL 0.8 mg/dL (0.2-1.2); C-REACTIVE PROTEIN 4.34 mg/dL (0.00-0.50); CREATININE, serum 0.87 mg/dL (0.57-1.11); POTASSIUM 3.6 mmol/L (3.5-4.5); TOTAL PROTEIN 6.6 gm/dL (6.2-8.1)
[2021-06-04 21:50] LABS: CALCIUM 5.9 mg/dL (8.4-10.2)
--- NOTE | 2021-06-05 00:01 | NUR ---
Patient to medical room 316 at this time. She is ambulatory with slightly unsteady gait; she denies pain. Lung sounds are coarse; pt on RA and satting 96%. Patient appears anxious and is forgetful.
[2021-06-05 00:20] VITALS: BP 104/74; PULSE 89; TEMP 98.3
[2021-06-05] MEDS ORDERED: TOPROL XL 25MG25 MG PO (00:36)
[2021-06-05 04:34] VITALS: BP 108/54; PULSE 81; TEMP 99.9
--- NOTE | 2021-06-05 05:17 | NUR ---
Patient has gotten some rest tonight. At times she wakes up and requests someone stay in the room with her because she is anxious. She has no complaints of pain. Call light in reach.
[2021-06-05 06:31] LABS: BASO % 0.3 % (0.0-2.0); GRAN # 7.9 K/mm3 (1.4-6.5); HEMOGLOBIN 10.2 g/dl (12.5-16.0); LYMPH # 1.3 K/mm3 (1.2-3.4); LYMPH % 12.8 % (20.0-51.0); MEAN CELL VOLUME 86 fl (80.0-100.0); MEAN CORPUSCULAR HEMOGLOBIN 30 pg (27.0-31.0); MEAN CORPUSCULAR HGB CONC 35 g/dl (33.0-37.0); MEAN PLATELET VOLUME 9.4 fl (7.4-10.4); MONO # 1.1 K/mm3 (0.1-0.6); MONO % 10.3 % (1.7-9.3); PLATELET COUNT 274 K/mm3 (130-400); RED BLOOD COUNT 3.37 M/mm3 (4.10-5.30)
[2021-06-05 06:32] LABS: HEMATOCRIT 28.9 % (37.0-47.0)
[2021-06-05 06:51] LABS: ALBUMIN 3.3 gm/dL (3.4-4.8); BILIRUBIN,TOTAL 1.1 mg/dL (0.2-1.2); CREATININE, serum 0.85 mg/dL (0.57-1.11); MAGNESIUM 2.3 mg/dL (1.6-2.6); POTASSIUM 3.6 mmol/L (3.5-4.5); TOTAL PROTEIN 6.4 gm/dL (6.2-8.1)
[2021-06-05 06:52] LABS: CALCIUM 5.5 mg/dL (8.4-10.2)
[2021-06-05 06:57] LABS: TROPONIN-I 0.026 ng/mL (0.00-0.033)
--- NOTE | 2021-06-05 07:25 | NUR ---
REPORT RECEIEVED FROM EMRE COELLO. PT ASLEEP IN BED. BREATHING REG/UNLABORED. CALL HOPPER IN REACH
[2021-06-05 07:47] VITALS: BP 96/67; PULSE 87; TEMP 98.7
[2021-06-05 12:07] VITALS: BP 101/80; PULSE 89; TEMP 98.3
--- NOTE | 2021-06-05 13:15 | NUR ---
First visit from the concrete stone fabricating supervisor. No needs right now.
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
[2021-06-05 16:29] VITALS: BP 87/61; PULSE 90; TEMP 97.7
--- NOTE | 2021-06-05 18:47 | NUR ---
PT HAD SOME EPISODES OF ANXIETY AND WAS PRESCRIBED ATIVAN. OTHERWISE, UNEVENTFUL SHIFT. PT ASLEEP IN BED. BREATHING REG/UNLABORED. CALL HOPPER IN REACH
[2021-06-05 21:22] VITALS: BP 107/64; PULSE 76; TEMP 98.2
--- NOTE | 2021-06-06 05:41 | NUR ---
Patient has had an uneventful night. She has rested throughout the majority of the night with no complaints. Call light in reach and hourly rounding in process.
[2021-06-06 06:50] LABS: BASO % 0.5 % (0.0-2.0); EOS # 0.1 K/mm3 (0.0-0.7); EOS % 1.3 % (0-4.0); GRAN # 3.3 K/mm3 (1.4-6.5); GRAN % 59.5 % (42.2-75.2); HEMOGLOBIN 10.4 g/dl (12.5-16.0); LYMPH # 1.5 K/mm3 (1.2-3.4); LYMPH % 26.5 % (20.0-51.0); MEAN CELL VOLUME 88 fl (80.0-100.0); MEAN CORPUSCULAR HEMOGLOBIN 31 pg (27.0-31.0); MEAN CORPUSCULAR HGB CONC 35 g/dl (33.0-37.0); MEAN PLATELET VOLUME 9.3 fl (7.4-10.4); MONO # 0.7 K/mm3 (0.1-0.6); PLATELET COUNT 299 K/mm3 (130-400); RED BLOOD COUNT 3.39 M/mm3 (4.10-5.30); REDCELL DISTRIBUTION WIDTH-CV 14.3 % (11.5-14.5)
[2021-06-06 06:51] LABS: HEMATOCRIT 29.8 % (37.0-47.0)
[2021-06-06 06:57] LABS: BILIRUBIN,TOTAL 0.7 mg/dL (0.2-1.2); CREATININE, serum 0.83 mg/dL (0.57-1.11); MAGNESIUM 1.9 mg/dL (1.6-2.6); POTASSIUM 3.5 mmol/L (3.5-4.5); TOTAL PROTEIN 6.5 gm/dL (6.2-8.1)
[2021-06-06 06:58] LABS: CALCIUM 5.9 mg/dL (8.4-10.2)
--- NOTE | 2021-06-06 06:59 | NUR ---
PT ASLEEP IN BED. BREATHING REGULAR/UNLABORED. CALL HOPPER IN REACH
[2021-06-06 07:19] VITALS: BP 119/66; PULSE 89; TEMP 97.7
[2021-06-06] MEDS ORDERED: MICARDIS20 MG PO (10:18)
[2021-06-06] MEDS ORDERED: CALCITRIOL PO ×2 (10:19→10:20)
[2021-06-06] MEDS ORDERED: CALCIUM CITRAT200 M2 PO (10:19)
[2021-06-06 11:08] VITALS: BP 111/75; PULSE 90; TEMP 98.4
--- NOTE | 2021-06-06 11:39 | NUR ---
DISCHARGE INSTRUCTIONS REVIEWED WITH PT. QUESTIONS INVITED AND ANSWERED. TELE AND IV REMOVED.
--- NOTE | 2021-06-06 12:43 | NUR ---
Primary nurse was assisted with [id number] patient care by [employer] student Leonid Calvin and [employer] instructor Blanche Merrill MSN, RN.
--- NOTE | 2021-06-06 13:30 | NUR ---
ABEL attended clinical rounds. The hospitalist is ready to discharge the patient today. The patient informed the team that she gets her medications at [facility]. The patient is going to have an outpatient CT done on 06/13 and will need to do the barium prep beforehand. ABEL notified Kendy at [facility]. Kendy reports that they can assist the patient with making sure she takes the prep before the CT. She states that it would be easier if we just sent the patient home with the prep today. ABEL notified pharmacy and the patient's RN. The barium prep was delivered to the patient's room. ABEL notified the patient's RN that the prep was delivered to the patient's room. Kendy, at [facility], reports that they will going out to the patient's home tomorrow at 0900 to admit her. ABEL met with the patient to update. ABEL provided her with a typed letter with her appointment with [facility] and their phone number. The patient verbalized understanding. The patient asked to be connected with her son. ABEL contacted the patient's son, Phill, and updated him on the above. Phill verbalized understanding. ABEL then transferred the call to the patient's room phone and connected the patient with the call. ABEL contacted Wanda Medina, APS worker, and provided her with an update. She reports that she will be out to visit the patient again on Thursday, 06/10. Wanda reports that the patient does have her utilities on, but the patient just chooses not to turn on the heat. ABEL updated the patient that Wanda would be visiting her on Thursday. The patient is to discharge back home today, 06/06, with home health services for detention/PT/OT from [facility]. ABEL faxed the patient's orders to [facility]. No additional needs at this time.
--- NOTE | 2021-06-07 16:01 | NUR ---
Kendy, at [facility], reports that they went out to the patient's home today at 0900 to do their visit, but the patient did not answer her door. Kendy reports that they are aware that the patient's APS worker is Wanda Medina. She reports that they will be reaching out to Wanda Medina to update her.
== END 2021-06-06 12:32 | disposition home health service (06) | DRG 291 ==
LOC: COL.ER 20:05 → MEDICAL 22:00
PROVIDERS: Family Medicine; Physician Assistant; Student in an Organized Health Care Education/Training Program; ADMIT Internal Medicine
DX: I11.0 Hypertensive heart disease with heart failure (principal); I50.23 Acute on chronic systolic (congestive) heart failure; J44.0 Chronic obstructive pulmonary disease with (acute) lower respiratory infection; E87.1 Hypo-osmolality and hyponatremia; K86.2 Cyst of pancreas; I25.10 Atherosclerotic heart disease of native coronary artery without angina pectoris; E83.51 Hypocalcemia; E78.5 Hyperlipidemia, unspecified; D50.9 Iron deficiency anemia, unspecified; E89.0 Postprocedural hypothyroidism; E11.9 Type 2 diabetes mellitus without complications; K21.9 Gastro-esophageal reflux disease without esophagitis; F32.A Depression, unspecified; F43.22 Adjustment disorder with anxiety; F22 Delusional disorders; J20.9 Acute bronchitis, unspecified; E83.42 Hypomagnesemia; E87.6 Hypokalemia; Z20.822 Contact with and (suspected) exposure to COVID-19; Z88.0 Allergy status to penicillin; I25.2 Old myocardial infarction; Z85.3 Personal history of malignant neoplasm of breast; Z79.82 Long term (current) use of aspirin; Z87.891 Personal history of nicotine dependence; Z86.718 Personal history of other venous thrombosis and embolism; Z91.14 Patient's other noncompliance with medication regimen; Z23 Encounter for immunization
CPT/HCPCS: 99223-AI; 99231-AI; 99239; J0610; J1650; J1940; J3475; Q9967

== ENCOUNTER → 2021-08-05 | Outpatient (CLI) | payer MEDICARE, OTHER | LOC: MC.RAD 12:49 | DX: Z12.31 Encounter for screening mammogram for malignant neoplasm of breast (principal); Z85.3 Personal history of malignant neoplasm of breast ==

== ENCOUNTER 2021-10-30 16:22 | Inpatient (IN) | payer MEDICARE, OTHER ==
[~2021-10-30] VITALS: Ht 154.9 cm; Wt 60.3 kg
[2021-10-30 17:42] LABS: BASO % 0.6 % (0.0-2.0); EOS % 0.4 % (0.0-4.0); GRAN # 3.2 K/mm3 (1.4-6.5); GRAN % 59.1 % (42.2-75.2); HEMOGLOBIN 13.1 g/dl (12.5-16.0); LYMPH # 1.6 K/mm3 (1.2-3.4); LYMPH % 30.7 % (20.0-51.0); MEAN CELL VOLUME 86 fl (80.0-100.0); MEAN CORPUSCULAR HEMOGLOBIN 31 pg (27-31); MEAN CORPUSCULAR HGB CONC 35 g/dl (33.0-37.0); MEAN PLATELET VOLUME 9.3 fl (7.4-10.4); MONO # 0.5 K/mm3 (0.1-0.6); PLATELET COUNT 244 K/mm3 (130-400); RED BLOOD COUNT 4.29 M/mm3 (4.10-5.30); REDCELL DISTRIBUTION WIDTH-CV 12.6 % (11.5-14.5)
[2021-10-30 17:48] LABS: COLLECTION METHOD CATHETER
[2021-10-30 17:59] LABS: ALANINE AMINOTRANSFERASE 19 U/L (0-55); ALBUMIN 4.8 gm/dL (3.4-4.8); ALKALINE PHOSPHATASE 75 U/L (40-150); ANION GAP 12 mmol/L (7-16); AST,SGOT 38 U/L (5-34); BILIRUBIN,TOTAL 0.8 mg/dL (0.2-1.2); BLOOD UREA NITROGEN 36 mg/dL (10-20); CARBON DIOXIDE 30 mmol/L (23-31); CHLORIDE 98 mmol/L (98-107); CREATININE, serum 1.71 mg/dL (0.57-1.11); GLUCOSE 96 mg/dL (70-99); POTASSIUM 3.1 mmol/L (3.5-4.5); SODIUM 140 mmol/L (136-145); TOTAL PROTEIN 8.7 gm/dL (6.2-8.1)
[2021-10-30 18:00] LABS: ACETAMINOPHEN < 1.0 ug/mL (10-30); ALCOHOL(ethanol),MEDICAL < 10 mg/dL (0-10); SALICYLATE < 5.0 mg/dL (15.0-30.0)
[2021-10-30 18:01] LABS: MUCOUS Present (NOT PRESENT); PH 6 (5-8); SQUAMOUS EPITHELIAL 0-2 /hpf (0-10); URINE APPEARANCE Hazy (CLEAR/HAZY); URINE BACTERIA None Seen /hpf (NONE SEEN); URINE BILIRUBIN Negative (NEGATIVE); URINE BLOOD Negative (NEGATIVE); URINE COLOR Yellow (YELLOW); URINE GLUCOSE Negative (NEGATIVE); URINE KETONE Negative (NEGATIVE); URINE LEUKOCYTE ESTERASE 1+ (NEGATIVE); URINE NITRATE Negative (NEGATIVE); URINE PROTEIN(semi-quant) Negative (NEGATIVE); URINE RBC 0-2 /hpf (0-2); URINE UROBILINOGEN Negative (NEGATIVE)
[2021-10-30 18:01] LABS: CALCIUM 14.2 mg/dL (8.4-10.2)
[2021-10-30 18:04] LABS: TRICYCLIC ANTIDEPRESS URINE NEGATIVE
[2021-10-31 07:58] LABS: BASO # 0.1 K/mm3 (0.0-0.2); EOS # 0.1 K/mm3 (0.0-0.7); EOS % 2.7 % (0.0-4.0); GRAN # 2.2 K/mm3 (1.4-6.5); GRAN % 43.3 % (42.2-75.2); HEMATOCRIT 40.2 % (37.0-47.0); HEMOGLOBIN 14.1 g/dl (12.5-16.0); LYMPH # 2.3 K/mm3 (1.2-3.4); LYMPH % 43.7 % (20.0-51.0); MEAN CELL VOLUME 87 fl (80.0-100.0); MEAN CORPUSCULAR HEMOGLOBIN 31 pg (27-31); MEAN CORPUSCULAR HGB CONC 35 g/dl (33.0-37.0); MEAN PLATELET VOLUME 9.5 fl (7.4-10.4); MONO # 0.5 K/mm3 (0.1-0.6); MONO % 9.1 % (1.7-9.3); PLATELET COUNT 248 K/mm3 (130-400); RED BLOOD COUNT 4.61 M/mm3 (4.10-5.30); REDCELL DISTRIBUTION WIDTH-CV 12.8 % (11.5-14.5)
[2021-10-31 08:08] LABS: ALBUMIN 4.7 gm/dL (3.4-4.8); BILIRUBIN,TOTAL 0.7 mg/dL (0.2-1.2); CREATININE, serum 1.83 mg/dL (0.57-1.11); MAGNESIUM 2.4 mg/dL (1.6-2.6); PHOSPHOROUS 2.4 mg/dL (2.3-4.7); POTASSIUM 3.5 mmol/L (3.5-4.5); TOTAL PROTEIN 8.9 gm/dL (6.2-8.1)
[2021-10-31 08:22] LABS: CALCIUM 12.6 mg/dL (8.4-10.2)
[2021-10-31 08:28] LABS: TSH w REFLEX 6.648 uIU/mL (0.350-4.940)
[2021-10-31] MEDS ORDERED: K-DUR20 MEQ PO (13:18)
[2021-10-31] MEDS ORDERED: MICARDIS80 MG PO ×2 (13:32→13:41)
[2021-10-31] MEDS ORDERED: NORVASC 10MG10 MG PO (13:35)
[2021-10-31] MEDS ORDERED: ROCALTROL0.5 MCG PO (13:37)
[2021-10-31] MEDS ORDERED: CATAPRES-TTS 10.1 M1 TD (13:42)
[2021-10-31] MEDS ORDERED: VANICREAM1 CRE TOP (13:42)
[2021-10-31 15:45] VITALS: BP 176/80; PULSE 79; TEMP 98
--- NOTE | 2021-10-31 16:15 | NUR ---
PT ADMITTED TO UNIT. ADMISSION INTAKE AND ASSESSMENT COMPLETED TO BEST OF MY ABILITIES. MED REC UPDATED BY ER. PT DENIES ANY NEEDS. PLEASANTLY CONFUSED. WILL CONTINUE TO MONITOR.
--- NOTE | 2021-10-31 18:22 | NUR ---
PT CONFUSED AT TIMES, UNABLE TO TELL ME WHAT MEDICATIONS SHE IS TAKING. WAS TOLD THAT ER PLACED PHARMACY MEDICATIONS LIST ON CHART BUT I AM UNABLE TO FIND IT. ATTEMPTED TO CALL HER PHARMACY WITH NO RESPONSE. NOTIFIED DR. JOHNSON THAT THIS RN WAS UNABLE TO UPDATE THE MED REC. NO EVENTS AFTER PT ARRIVED ON THE UNIT, SHE IS RESTING IN BED AT THIS TIME. WILL PASS ALONG REPORT TO ONCOMING RN.
[2021-10-31 19:59] VITALS: BP 154/81; PULSE 76; TEMP 97.8
[2021-11-01 00:29] VITALS: BP 155/90; PULSE 76; TEMP 97.7
[2021-11-01 03:41] VITALS: BP 149/84; PULSE 74; TEMP 98.1
--- NOTE | 2021-11-01 05:30 | NUR ---
ASSESSMENT COMPLETE FOR THIS SHIFT. PT PACING AROUND THE ROOM WHEN I WALKED IN FOR ASSESSMENT. PT A&O X 3 (PT GAVE THE WRONG DATE WHEN ASKED CURRENT MONTH AND YEAR). PT DENIED PAIN, RACING HEART, SOB, N,V,D OR DIZZINESS. PT REFUSED TO TAKE ALL MEDS. PT FELT SHE DIDN'T NEED THEM. PT CONTINUED TO WALK OUT OF HER ROOM SEVERAL TIMES. WE WALKED WITH HER UP AND DOWN THE HALLS A FEW TIMES. PT ALSO TANGLED HER IV AROUND HER BED RAIL A COUPLE OF TIMES BEFORE IT CLOTTED, BECAUSE SHE CONTINUED TO MOVE AROUND THE ROOM AND BED. NOTE: IV WAS WRAPPED WITH AN SAHIL BANDAGE, WHICH PT WOULD UNWRAP AND REWRAP BECAUSE SHE FELT IT NEEDED TO BE TIGHTER. WILL CONTINUE TO MONITOR PT. CALL LIGHT WITHIN REACH.
[2021-11-01 06:51] LABS: BASO % 0.7 % (0.0-2.0); EOS # 0.1 K/mm3 (0.0-0.7); EOS % 2.5 % (0.0-4.0); GRAN # 1.6 K/mm3 (1.4-6.5); GRAN % 39.4 % (42.2-75.2); LYMPH # 1.9 K/mm3 (1.2-3.4); LYMPH % 47.3 % (20.0-51.0); MEAN CELL VOLUME 90 fl (80.0-100.0); MEAN CORPUSCULAR HGB CONC 34 g/dl (33.0-37.0); MEAN PLATELET VOLUME 9.8 fl (7.4-10.4); MONO # 0.4 K/mm3 (0.1-0.6); MONO % 9.9 % (1.7-9.3); PLATELET COUNT 213 K/mm3 (130-400); RED BLOOD COUNT 3.85 M/mm3 (4.10-5.30); REDCELL DISTRIBUTION WIDTH-CV 12.7 % (11.5-14.5)
[2021-11-01 06:59] LABS: HEMOGLOBIN 11.7 g/dl (12.5-16.0); MEAN CORPUSCULAR HEMOGLOBIN 30 pg (27-31)
[2021-11-01 07:00] LABS: HEMATOCRIT 34.6 % (37.0-47.0)
[2021-11-01 07:17] LABS: CALCIUM 10.4 mg/dL (8.4-10.2); CREATININE, serum 1.21 mg/dL (0.57-1.11); MAGNESIUM 1.9 mg/dL (1.6-2.6); POTASSIUM 3.1 mmol/L (3.5-4.5)
[2021-11-01 07:22] VITALS: BP 147/87; PULSE 74; TEMP 98.1
--- NOTE | 2021-11-01 08:00 | NUR ---
PT PLEASANT, A TO SELF, PLACE AND CURRENT DAY BUT NOT YEAR OR SITUATION. PT DENIES PAIN, REFUSES NEW IV START, AGREEABLE TO MEDICATIONS IN AM, SHEETS CHANGED, BREAKFAST PROVIDED, WARM WASH CLOTH, WATER AND LOTION PROVIDED
--- NOTE | 2021-11-01 08:13 | NUR ---
ANALI BRAVO NOTIFIED OF DROP IN HGB, NO IV SITE, AND LOW POTASSIUM, PLACED ON POTASSIUM PROTOCOL.
--- NOTE | 2021-11-01 08:26 | NUR ---
PT REFUSING NEW IV SITE FROM MULTIPLE NURSES
[2021-11-01 09:15] LABS: BILIRUBIN,TOTAL 0.6 mg/dL (0.2-1.2); TOTAL PROTEIN 7.3 gm/dL (6.2-8.1)
--- NOTE | 2021-11-01 09:36 | NUR ---
Initial visit; Patient spoke of being unhappy with her care and Public Policy Coordinator directed her toward Social Work with her complaints and offered God's blessings as well.
--- NOTE | 2021-11-01 09:50 | NUR ---
[facility] NOTIFIED TO RESCREEN PT. PERTINENT INFORMATION FAXED TO FACILITY PER FACILITY REQUEST.
[2021-11-01] MEDS ORDERED: LEXAPRO20 MG PO (10:44)
[2021-11-01] MEDS ORDERED: CATAPRES 0.1MG0.1 MG PO (10:44)
[2021-11-01] MEDS ORDERED: K-TAB20 PO (10:58)
[2021-11-01 11:14] VITALS: BP 156/84; PULSE 87; TEMP 98.1
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
[2021-11-01 15:07] VITALS: BP 130/75; PULSE 84; TEMP 97.6
[2021-11-01] MEDS ORDERED: CALCIUM CITRATE1 TA1 PO (16:11)
[2021-11-01] MEDS ORDERED: CALCITRIOL PO (16:12)
--- NOTE | 2021-11-01 16:37 | NUR ---
Rocío, at the [facility], states that [facility] unit has accept the patient and they are able to accept her today. They would just need a PCR COVID and disharge orders. ABEL notified the PA, the RN, and Motor Vehicle License Clerk for secure transport. ABEL provided the phone number and fax number to [facility] to the RN to notify of transport time and to fax the COVID results and orders. ABEL made an APS report. Intake ID#[id number]. No additional needs at this time.
--- NOTE | 2021-11-01 17:38 | NUR ---
PT KEEPS SAYING "I NOT GOING, I NOT GO, I GO HOME, I CALL TAXI". ATTEMPTED TO DESCALATE PT, DR. JOHNSON NOTIFIED AND PRN ATIVAN GIVEN ORALLY, PT AGREEABLE TO MEDICATION
--- NOTE | 2021-11-01 17:46 | NUR ---
PT BELONGINGS BROUGHT TO PT FROM SECURITY. ATTEMPTED TO CALL REPORT TO [facility], NO ANSWER AT THIS TIME
--- NOTE | 2021-11-01 17:57 | NUR ---
PT REPEATEDLY TRYING TO LEAVE MEDICAL FLOOR, [facility] DR. JOHNSON, ZYPREXA PO ORDERED. PHARMACY CALLED TO BRING ZYPREXA. REPORT CALLED TO SANA GRAYSON.
--- NOTE | 2021-11-01 18:53 | NUR ---
TRANSPORTATION ARRIVED FOR PT. PT BEGAN SHOUTING "I NO LEAVE, I STAY, I NO LEAVE". SECURITY CALLED. ATTEMPTING TO DEESCALATE PT, DR. JOHNSON NOTIFIED, DIRECTED PT BACK TO ROOM. PT BEGAN TO BARRICADE DOOR, CONVINCED TO PT OPEN DOOR. PT INSISTANT ON GOING HOME. STATING "I KILL MYSELF IF I GO, I NO GO, I STAY". ATTEMPTED VERBAL DE ESCALATION, UNSUCCESSFUL. DR. JOHNSON NOTIFIED, IM ATIVAN AND IM BENADRYL VERBAL ORDER GIVEN AND PLACED IN COMPUTER, GENA ANDREA RETRIEVED MEDICATION FROM [facility], PHARMACY NOTIFIED. BENADRYL AND ATIVAN GIVEN PER VERBAL ORDER. AFTER ABOUT 10 MIN PT BEGAN TO RELAX. ABLE TO COAX INTO WHEELCHAIR. LEAVING FACILITY. [facility] CALLED STATING PT WAS LEAVING FACILITY AND UPDATED ON MEDS GIVEN SINCE LAST REPORT.
== END 2021-11-01 19:00 | DRG 641 ==
LOC: COL.ER 16:22 → MEDICAL 10-31 08:09
PROVIDERS: Emergency Medicine; Physician Assistant; Registered Nurse; ADMIT Internal Medicine
DX: E83.52 Hypercalcemia (principal); N17.9 Acute kidney failure, unspecified; I50.22 Chronic systolic (congestive) heart failure; G93.40 Encephalopathy, unspecified; N39.0 Urinary tract infection, site not specified; F03.90 Unspecified dementia, unspecified severity, without behavioral disturbance, psychotic disturbance, mood disturbance, and anxiety; I16.0 Hypertensive urgency; I11.0 Hypertensive heart disease with heart failure; D50.9 Iron deficiency anemia, unspecified; E78.5 Hyperlipidemia, unspecified; E05.00 Thyrotoxicosis with diffuse goiter without thyrotoxic crisis or storm; E89.0 Postprocedural hypothyroidism; E11.9 Type 2 diabetes mellitus without complications; K21.9 Gastro-esophageal reflux disease without esophagitis; F32.A Depression, unspecified; F43.22 Adjustment disorder with anxiety; F22 Delusional disorders; E87.6 Hypokalemia; Z20.822 Contact with and (suspected) exposure to COVID-19; Z85.3 Personal history of malignant neoplasm of breast; Z88.0 Allergy status to penicillin; I25.2 Old myocardial infarction; Z86.718 Personal history of other venous thrombosis and embolism; Z87.891 Personal history of nicotine dependence; Z79.84 Long term (current) use of oral hypoglycemic drugs; Z79.82 Long term (current) use of aspirin; Z23 Encounter for immunization
CPT/HCPCS: 99223-AI; 99239; J0696; J1200; J2060; J7030

== ENCOUNTER 2022-02-01 22:34 | Inpatient (IN) | payer MEDICARE, OTHER ==
[~2022-02-01] VITALS: Ht 160 cm; Wt 67.9 kg
[~2022-02-01 22:34] MED LIST changes: +CALCIUM CITRATE1 TA1 PO; +CATAPRES-TTS 10.1 M1 TD; +K-DUR20 MEQ PO; +LEXAPRO20 MG PO; +ROCALTROL0.5 MCG PO; +VANICREAM1 CRE TOP
[2022-02-01 23:16] LABS: BASO % 0.5 % (0.0-2.0); EOS % 0.3 % (0.0-4.0); GRAN % 67.6 % (42.2-75.2); LYMPH # 1.5 K/mm3 (1.2-3.4); LYMPH % 20.8 % (20.0-51.0); MEAN CELL VOLUME 87 fl (80.0-100.0); MEAN CORPUSCULAR HEMOGLOBIN 29 pg (27-31); MEAN CORPUSCULAR HGB CONC 34 g/dl (33.0-37.0); MEAN PLATELET VOLUME 9.7 fl (7.4-10.4); MONO # 0.8 K/mm3 (0.1-0.6); MONO % 10.5 % (1.7-9.3); PLATELET COUNT 209 K/mm3 (130-400); RED BLOOD COUNT 3.74 M/mm3 (4.10-5.30); REDCELL DISTRIBUTION WIDTH-CV 13.2 % (11.5-14.5)
[2022-02-01 23:25] LABS: INR 1.1 (0.8-3.0); PROTHROMBIN TIME 12.9 SECONDS (9.7-12.8)
[2022-02-01 23:26] LABS: HEMATOCRIT 32.4 % (37.0-47.0)
[2022-02-01 23:28] LABS: PARTIAL THROMBOPLASTIN TIME 30.7 SECONDS (26.0-37.0)
[2022-02-01 23:55] LABS: ALBUMIN 3.4 gm/dL (3.4-4.8); BILIRUBIN,TOTAL 1.3 mg/dL (0.2-1.2); CREATININE, serum 0.89 mg/dL (0.57-1.11); TOTAL PROTEIN 6.9 gm/dL (6.2-8.1)
[2022-02-02] LABS: POTASSIUM 2.9 mmol/L (3.5-4.5)
[2022-02-02 00:02] LABS: TROPONIN-I 0.082 ng/mL (0.00-0.033)
[2022-02-02 00:59] LABS: C-REACTIVE PROTEIN 4.45 mg/dL (0.00-0.50); MAGNESIUM 1.8 mg/dL (1.6-2.6); PHOSPHOROUS 3.3 mg/dL (2.3-4.7)
--- NOTE | 2022-02-02 01:44 | NUR ---
RECEIVED REPORT FROM DILLAN Pittman RN. PATIENT ARRIVAL PENDING TRANSPORT FROM [facility]
[2022-02-02 01:54] LABS: THYROID STIMULATING HORMONE 5.619 uIU/mL (0.350-4.940)
--- NOTE | 2022-02-02 02:15 | NUR ---
PATIENT ARRIVED TO UNIT PER [facility] CART/TRANSPORTED BY [facility] PCT. PATIENT DROWSY AND REPORTS FEELING DROWSY.
--- NOTE | 2022-02-02 02:18 | NUR ---
PATIENT TOO DROWSY TO ANSWER ADMISSION QUESTIONS AT THIS TIME.
--- NOTE | 2022-02-02 02:19 | NUR ---
PATIENT REFUSING TO TAKE OFF STREET PANTS FOR ASSESSMENT, REFUSING TO HAVE SKIN ASSESSMENT DONE.
[2022-02-02 02:24] VITALS: BP 110/64; PULSE 81; TEMP 99.2
--- NOTE | 2022-02-02 02:37 | NUR ---
PATIENT REFUSING TO RESPOND TO ADMISSION QUESTIONS, STATING SHE IS TOO DROWSY, REFUSING TO HAVE ASSESSMENT OF SKIN DONE, WOULD NOT REMOVE STREET CLOTHES (PANTS/SOCKS), HAS HOSPITAL GOWN ON. REFUSING TO RESPONS TO QUESTIONS REGARDING HOME MEDICATIONS FOR MED REC.
[2022-02-02 04:11] VITALS: BP 103/61; PULSE 70; TEMP 97.9
--- NOTE | 2022-02-02 06:00 | NUR ---
PATIENT REQUESTING TO HAVE LAC INT BE REMOVED DUE TO DISCOMFORT WITH BENDING OF L ELBOW/ARM.
[2022-02-02] MEDS ORDERED: LASIX 40MG TABL40 MG PO (06:48)
[2022-02-02] MEDS ORDERED: LEXAPRO 10MG10 MG PO (06:50)
[2022-02-02] MEDS ORDERED: ZYPREXA10 MG PO (06:51)
[2022-02-02] MEDS ORDERED: PROTONIX 40MG T40 MG PO (06:52)
[2022-02-02] MEDS ORDERED: ROCALTROL0.5 MCG PO (06:52)
[2022-02-02] MEDS ORDERED: ATIVAN 0.50.5 MG/TAB PO (06:52)
[2022-02-02] MEDS ORDERED: GLUCOPHAGE500 MG/TAB PO (06:52)
--- NOTE | 2022-02-02 06:55 | NUR ---
appears to be sleeping, bedside shift report received from EMRE Cotton
--- NOTE | 2022-02-02 07:11 | NUR ---
CHANGE OF SHIFT REPORT GIVEN TO DAY SHIFT VEE ANDREA.
--- NOTE | 2022-02-02 07:12 | NUR ---
Bianca PHILLIP in room attempting to ask her questions and patient only responds at times
[2022-02-02 07:37] VITALS: BP 95/57; PULSE 81; TEMP 98.6
--- NOTE | 2022-02-02 07:55 | NUR ---
awake and up and about in room independently, has steady gait, full assessment completed, see interventions for further info, is concerned and wanting to know why the large trashcan for isolation trash is in the room, tried to explain to her but does not want in room, moved trash can out of room, watching TV, breakfast ordered
[2022-02-02 08:40] LABS: CALCIUM 7.1 mg/dL (8.4-10.2); CREATININE, serum 0.87 mg/dL (0.57-1.11)
[2022-02-02 08:46] LABS: BASO % 0.4 % (0.0-2.0); EOS % 0.5 % (0.0-4.0); GRAN # 4.6 K/mm3 (1.4-6.5); GRAN % 62.9 % (42.2-75.2); HEMOGLOBIN 12.1 g/dl (12.5-16.0); LYMPH % 27.6 % (20.0-51.0); MEAN CELL VOLUME 87 fl (80.0-100.0); MEAN CORPUSCULAR HEMOGLOBIN 30 pg (27-31); MEAN CORPUSCULAR HGB CONC 34 g/dl (33.0-37.0); MEAN PLATELET VOLUME 10.6 fl (7.4-10.4); MONO # 0.6 K/mm3 (0.1-0.6); MONO % 8.3 % (1.7-9.3); PLATELET COUNT 127 K/mm3 (130-400); RED BLOOD COUNT 4.08 M/mm3 (4.10-5.30); REDCELL DISTRIBUTION WIDTH-CV 13.2 % (11.5-14.5)
[2022-02-02 08:48] LABS: TROPONIN-I 0.067 ng/mL (0.00-0.033)
--- NOTE | 2022-02-02 08:55 | NUR ---
Dr Del Rosario notified of troponin 0.067, she is up and about in room and saying there is something wrong with her oatmeal that it looks funny, informed her I was going to give her morning medicine but refuses until after she sees the
--- NOTE | 2022-02-02 09:21 | NUR ---
resting in bed looking at TV, continues to refuse meds at this time
--- NOTE | 2022-02-02 09:40 | NUR ---
called nurse to room and states she is having trouble breathing and requesting her oxygen, resp are even and unlabored, O2 on at 1L/NC
--- NOTE | 2022-02-02 09:48 | NUR ---
encouraged her to take IV lasix and ativan to help with her breathing and to relax, she continues to refuse all medicine
[2022-02-02 10:02] LABS: HEMATOCRIT 35.3 % (37.0-47.0)
--- NOTE | 2022-02-02 10:35 | NUR ---
Dr Del Rosario in to see patient, attempted to go with him but she asks me to leave that she doesn't want to see my face,
--- NOTE | 2022-02-02 10:40 | NUR ---
back into room wiht Dr Del Rosario and he is encouraging her to take her medicine, will have another nurse attempt to give her the medicine
--- NOTE | 2022-02-02 11:20 | NUR ---
patient dress and out in del cid asking to go home, will notify nursing news production supervisor of her request to leave AMA
--- NOTE | 2022-02-02 11:50 | NUR ---
Called to the [facility] to see patient. Went to patient room to see here. She states that she wants to go home. Spoke with Dr. Del Rosario; he stated Dr. Gallegos and Dr. Del Rosario would like to her to stay. That if patient wanted to leave she would have to do so, AMA. Went again to speak with patient and she continues to want to go home. AMA form given to patient and reviewed it with her. She stated she understood but wanted me to put on the form that "it was the Camas Juice and Oatmeal the reason she was leaving" Discussed with patient the problem with her food. She still wanted to leave. AMA form signed by patient. IV to right wrist removed. Shortly after removing patient states "Ill stay one more night" Reported to the nurse that the patient is now staying. EMRE Quintana went to see patient. Inquired about putting INT back in as patient is recieving IV Lasix. She states she will not be taking any more medication.
--- NOTE | 2022-02-02 12:08 | NUR ---
Spoke with Dr. Del Rosario. Patient will need to take medications as ordered. Does not want to change Lasix to PO. This nurse and Charge Nurse, Andrei spoke with patient. Explained to patient that she needed to take medication; she stated that she doesnt trust medication; it will make her sick and she will go home. Offered to take patient to the ER door with a w/c and she refused stating I can do it myself. AMA form has been signed and patient states she understands but she "does not want to here!!"
--- NOTE | 2022-02-02 12:17 | NUR ---
discharged ambulatory with BEAUTY OPERATOR APPRENTICE walking her out
== END 2022-02-02 12:17 | disposition left against medical advice (07) | DRG 280 ==
LOC: COL.ER 22:34 → SURG 02-02 00:05
PROVIDERS: Emergency Medicine; Nurse Practitioner Family; ADMIT Internal Medicine
DX: I11.0 Hypertensive heart disease with heart failure (principal); J96.01 Acute respiratory failure with hypoxia; I21.A1 Myocardial infarction type 2; I50.23 Acute on chronic systolic (congestive) heart failure; J91.8 Pleural effusion in other conditions classified elsewhere; E87.1 Hypo-osmolality and hyponatremia; E78.5 Hyperlipidemia, unspecified; J42 Unspecified chronic bronchitis; E11.9 Type 2 diabetes mellitus without complications; F22 Delusional disorders; E89.0 Postprocedural hypothyroidism; K21.9 Gastro-esophageal reflux disease without esophagitis; F32.A Depression, unspecified; F43.22 Adjustment disorder with anxiety; D50.9 Iron deficiency anemia, unspecified; Z20.822 Contact with and (suspected) exposure to COVID-19; E87.6 Hypokalemia; Z53.29 Procedure and treatment not carried out because of patient's decision for other reasons; J45.909 Unspecified asthma, uncomplicated; I25.10 Atherosclerotic heart disease of native coronary artery without angina pectoris; Z79.84 Long term (current) use of oral hypoglycemic drugs; Z79.890 Hormone replacement therapy; Z59.01 Sheltered homelessness; Z88.0 Allergy status to penicillin; Z92.21 Personal history of antineoplastic chemotherapy; Z85.3 Personal history of malignant neoplasm of breast; Z86.11 Personal history of tuberculosis; Z87.891 Personal history of nicotine dependence; Z91.14 Patient's other noncompliance with medication regimen; Z86.718 Personal history of other venous thrombosis and embolism
CPT/HCPCS: J0610; J1940; J3480

== ENCOUNTER 2022-02-05 18:39 | Inpatient (IN) | payer MEDICARE, OTHER ==
[~2022-02-05] VITALS: Ht 154.9 cm; Wt 67.4 kg
[~2022-02-05 18:39] MED LIST changes: +GLUCOPHAGE500 MG/TAB PO; +LASIX 40MG TABL40 MG PO; +LEXAPRO 10MG10 MG PO; +PROTONIX 40MG T40 MG PO; +ZYPREXA10 MG PO
[2022-02-05 19:42] LABS: BASO % 0.3 % (0.0-2.0); EOS % 0.3 % (0.0-4.0); GRAN # 4.8 K/mm3 (1.4-6.5); GRAN % 72.5 % (42.2-75.2); LYMPH # 1.2 K/mm3 (1.2-3.4); MEAN CELL VOLUME 86 fl (80.0-100.0); MEAN CORPUSCULAR HEMOGLOBIN 29 pg (27-31); MEAN CORPUSCULAR HGB CONC 34 g/dl (33.0-37.0); MEAN PLATELET VOLUME 10.5 fl (7.4-10.4); MONO # 0.6 K/mm3 (0.1-0.6); MONO % 8.4 % (1.7-9.3); PLATELET COUNT 262 K/mm3 (130-400); RED BLOOD COUNT 3.77 M/mm3 (4.10-5.30); REDCELL DISTRIBUTION WIDTH-CV 13.1 % (11.5-14.5)
[2022-02-05 19:48] LABS: HEMATOCRIT 32.4 % (37.0-47.0)
[2022-02-05 20:44] LABS: CREATININE, serum 0.95 mg/dL (0.57-1.11); POTASSIUM 4.8 mmol/L (3.5-4.5)
[2022-02-05 20:51] LABS: TROPONIN-I 0.041 ng/mL (0.00-0.033)
[2022-02-06 00:32] VITALS: BP 121/79; PULSE 87; TEMP 98.3
--- NOTE | 2022-02-06 02:46 | NUR ---
MEDICATION REC NOT DONE PT UN COOPERATIVE, REFUSE TO ANSWER ANY QUESTIONS AND WANTS TO BE LEFT ALONE
--- NOTE | 2022-02-06 06:25 | NUR ---
PATIENT CONTINUES TO DECLINE ALL THE NURSING CARE , DECLINE TELE AND BLOOD DRAWS.MED REC NOT DONE PT SAYS SHE DOESNT HAVE HER MEDICATION LIST AND DOESNT REMEMBER WHAT MEDICATION SHE IS ON. PT IS NPO.
[2022-02-06 07:22] LABS: BASO % 0.6 % (0.0-2.0); EOS % 0.3 % (0.0-4.0); GRAN # 4.2 K/mm3 (1.4-6.5); GRAN % 62.9 % (42.2-75.2); HEMOGLOBIN 11.8 g/dl (12.5-16.0); LYMPH # 1.6 K/mm3 (1.2-3.4); LYMPH % 23.7 % (20.0-51.0); MEAN CELL VOLUME 84 fl (80.0-100.0); MEAN CORPUSCULAR HEMOGLOBIN 29 pg (27-31); MEAN CORPUSCULAR HGB CONC 35 g/dl (33.0-37.0); MEAN PLATELET VOLUME 11.1 fl (7.4-10.4); MONO # 0.7 K/mm3 (0.1-0.6); MONO % 11.1 % (1.7-9.3); PLATELET COUNT 218 K/mm3 (130-400); RED BLOOD COUNT 4.03 M/mm3 (4.10-5.30)
[2022-02-06 07:26] LABS: HEMATOCRIT 33.8 % (37.0-47.0)
--- NOTE | 2022-02-06 09:52 | NUR ---
REFUSED ASSESSMENT AT THIS TIME. DID ALLOW LABS AND SLIP SIDING MECHANIC SOCKS TO BE PLACED. MED REC COMPLETE USING LAST VISIT MED LIST. DR VIRGEN ORDERS DIET AND NO FREE WATER. SETTING UP IN BED QUIETLY AT THIS TIME.
[2022-02-06 10:10] LABS: ALBUMIN 3.7 gm/dL (3.4-4.8); BILIRUBIN,TOTAL 1.2 mg/dL (0.2-1.2); CALCIUM 6.1 mg/dL (8.4-10.2); CREATININE, serum 0.92 mg/dL (0.57-1.11); MAGNESIUM 1.8 mg/dL (1.6-2.6); POTASSIUM 4.9 mmol/L (3.5-4.5); TOTAL PROTEIN 7.2 gm/dL (6.2-8.1)
--- NOTE | 2022-02-06 12:11 | NUR ---
REFUSED TELE, AND REF INSULIN. FEELS DROWSY AND THAT WE ARE GIVING HER TO MANY "DRUGS". NOTHING GIVEN OTHER THAN IV FLUIDS SINCE STAY. RESTING QUIETLY, REFUSAL ACCEPTED.
--- NOTE | 2022-02-06 12:31 | NUR ---
beam worker attended rounding this morning with hospitalist. Up until this morning, the patient has been denying all cares. expresses the importance of getting her labs drawn which the patient is now agreeable to do. Patient reports that she is still living in her apartment but had her suitcase and other bags with her. Per ER documentation the patient has been staying at the homeless custodial, however the patient reports to still having her apartment to me. Patient also states her son Phill ([phone]) is back in the states from his training in [place]. Attempt made to contact APS to see if the patient has an open case or not and was unsuccessful. Phone call made to [facility] who states that patient was staying there and arrived last Thursday. The patient got terminated from the facility yesterday for failure to comply with their Covid 19 "rules". She is currently on their do not return list. Agency staff states that they arranged for the patient to stay at a hotel but she did not want to go.
--- NOTE | 2022-02-06 14:33 | NUR ---
CONT TO REFUSE SOME CARES TO INCLUDE TELE MONITORING AND INSULIN. IV FLUIDS CONT TO GO AND TOLERATING ADA DIET. LESS STIMULI THE BETTER. COVERED W WARM BLANKET AND LAYING DOWN FOR NAP NOW.
[2022-02-06 15:50] VITALS: BP 123/81; PULSE 95; TEMP 98.1
[2022-02-06 20:07] VITALS: BP 115/86; PULSE 86; TEMP 97.5
[2022-02-06 20:27] LABS: CALCIUM 6.3 mg/dL (8.4-10.2); CREATININE, serum 0.92 mg/dL (0.57-1.11); POTASSIUM 5.3 mmol/L (3.5-4.5)
[2022-02-07 00:04] VITALS: BP 138/80; PULSE 93; TEMP 97.9
--- NOTE | 2022-02-07 03:39 | NUR ---
ASSESSMENT COMPLETE FOR THIS SHIFT. PT RESTING IN BED SLEEPING. PT VERY DROWSY, ONLY ANSWERING QUESTIONS WITH YES, NO OR NO ANSWER. PT REFUSED ORAL MEDS EARLIER IN SHIFT AND WAS TOO DROWSY TO DRINK HER URE-NA SAFELY. PT SHOWED NO SIGNS OF PAIN OR DISCOMFORT, D,N,V, SOB OR DIZZINESS. WILL CONTINUE TO MONITOR AND IF SHE BECOMES AWAKE ENOUGH, I WILL TRY TO GET HER TO DRINK HER URE-NA. CALL LIGHT WITHIN REACH.
[2022-02-07 04:27] VITALS: BP 135/88; PULSE 97; TEMP 98.4
[2022-02-07 04:42] LABS: COLLECTION METHOD CLEAN CATCH
[2022-02-07 04:51] LABS: MUCOUS Present (NOT PRESENT); PH 6 (5-8); SQUAMOUS EPITHELIAL 0-2 /hpf (0-10); URINE APPEARANCE Clear (CLEAR/HAZY); URINE BACTERIA Rare /hpf (NONE SEEN); URINE BLOOD Negative (NEGATIVE); URINE COLOR Straw (YELLOW); URINE GLUCOSE 3+ (NEGATIVE); URINE KETONE Negative (NEGATIVE); URINE NITRATE Negative (NEGATIVE); URINE PROTEIN(semi-quant) Negative (NEGATIVE); URINE RBC 0-2 /hpf (0-2); URINE UROBILINOGEN Negative (NEGATIVE)
[2022-02-07 05:46] LABS: OSMOLALITY-URINE random 226 Osm/kg (50-1200)
[2022-02-07 07:08] LABS: ALBUMIN 3.4 gm/dL (3.4-4.8); CALCIUM 6.7 mg/dL (8.4-10.2); CREATININE, serum 0.83 mg/dL (0.57-1.11); MAGNESIUM 1.8 mg/dL (1.6-2.6); TOTAL PROTEIN 6.6 gm/dL (6.2-8.1)
[2022-02-07 07:18] LABS: BILIRUBIN,TOTAL 1.2 mg/dL (0.2-1.2)
[2022-02-07 07:28] VITALS: BP 146/98; PULSE 85; TEMP 98.3
--- NOTE | 2022-02-07 08:25 | NUR ---
REPORTED SOD LEVEL OF 129 TO YESY THIS AM AND HAD CALLED [facility] DUE TO NO ANSWER INITALLY. ORDERS TO DC 3%NS. PT PREVIOUS LEVEL OF 118. PT SLEEPING W EYES CLOSED, RESP EVEN AND UNLABORED. BREAKFAST ORDERED FOR HER. CALL LIGHT WI REACH.
--- NOTE | 2022-02-07 09:09 | NUR ---
[facility] referrals faxed to [facility] and [facility]. Patient was admitted to [facility] in November 2021
[2022-02-07 11:50] VITALS: BP 97/61; PULSE 88; TEMP 98.2
--- NOTE | 2022-02-07 14:24 | NUR ---
Clinical referral faaxed to all other [facility] psych facilities. 's contacted this SW stating that at this time the patient is to high needs for them to take her so they will have to decline. Ayaan with [facility] called stating that the patient is out of her MCR psych days. (Approx. 160) and that will not pay. Due to the patient not having a current payor source, Ayaan states that they are not able to accept this patient. Ayaan states that if the patient was admittied as [facility] ( involuntary admission and the state pays the facility). Physician provided update. Agreement to screen patient by [facility] once she is medically stable. At this time the physician does not feel the patient is able to make sound decisions.
--- NOTE | 2022-02-07 15:24 | NUR ---
PT DROWSY FIRST PART OF DAY, UP MOVING AROUND IN ROOM. CONT TO REFUSE SOME CARES/MED. LOVENOX REF, DR VIRGEN AWARE, STATES TO DOCUMENT. [facility] PS[facility] PLACEMENT NEEDED. REFERALS OUT.
[2022-02-07 16:09] VITALS: BP 125/71; PULSE 93; TEMP 98.1
[2022-02-07 19:15] LABS: CALCIUM 6.8 mg/dL (8.4-10.2); CREATININE, serum 0.93 mg/dL (0.57-1.11); POTASSIUM 4.1 mmol/L (3.5-4.5)
[2022-02-07 20:11] VITALS: BP 125/82; PULSE 91; TEMP 98.6
[2022-02-08 00:02] VITALS: BP 125/77; BP 93/70; PULSE 82; TEMP 97.7
[2022-02-08 04:08] VITALS: BP 115/71; PULSE 86; TEMP 98.8
[2022-02-08 07:14] VITALS: BP 129/64; PULSE 92; TEMP 98.8
[2022-02-08 07:58] LABS: ALBUMIN 3.1 gm/dL (3.4-4.8); CALCIUM 6.7 mg/dL (8.4-10.2); CREATININE, serum 0.88 mg/dL (0.57-1.11); POTASSIUM 3.8 mmol/L (3.5-4.5); TOTAL PROTEIN 6.3 gm/dL (6.2-8.1)
--- NOTE | 2022-02-08 10:24 | NUR ---
ALERT AND OX3. ATE BREAKFAST AND CLEANED UP. TOOK AM MEDS. REF LOVENOX AND TELE MONITOR. POC DISCUSSED. PT STATES NO BM IN A LONG TIME. METMUCIL GIVEN. HOWEVER PT REPORT BM YEST TO ME. CLOSE MONIOTING BY NURSE DESK.
[2022-02-08 11:33] VITALS: BP 105/53; PULSE 86; TEMP 97.8
[2022-02-08 15:36] VITALS: BP 135/79; PULSE 101; TEMP 97.1
[2022-02-08 20:40] VITALS: BP 112/85; PULSE 88; TEMP 98.1
--- NOTE | 2022-02-08 22:40 | NUR ---
Patient assessed around 1909. Denies having pain and discomfort. Peripheral INT left AC. LS CTA. HRR. Refuses telemetry. BSAx4. Generalized edema. Voices no questions, needs, or concerns at this time. In bed with call light within reach.
[2022-02-09 00:08] VITALS: BP 128/86; PULSE 89; TEMP 97.9
[2022-02-09 04:28] VITALS: BP 126/92; PULSE 112; TEMP 98.4
--- NOTE | 2022-02-09 05:56 | NUR ---
Patient in bed with call light within reach. Voices no questions, needs, or concerns at this time.
--- NOTE | 2022-02-09 07:55 | NUR ---
PT SITTING UP IN BED ON ROOM AIR. PT STATES THAT SHE WOULD LIKE TO HAVE SOME BREAKFAST. BREAKFAST WAS ORDERED FOR HER. PT STATES NO PAIN AT THIS TIME. PT STATES THAT SHE WOULD LIKE TO HAVE A GATORADE TO DRINK. THIS WAS GOTTEN FOR THE PT. PT STATES NO OTHER NEEDS/CONCERNS AT THIS TIME. CALL LIGHT IS WITHIN REACH.
[2022-02-09 08:36] VITALS: BP 118/78; PULSE 99; TEMP 99.1
[2022-02-09 11:58] VITALS: BP 122/91; PULSE 109; TEMP 98.2
[2022-02-09 15:35] VITALS: BP 116/79; PULSE 106; TEMP 97.7
[2022-02-09 15:58] LABS: CALCIUM 6.3 mg/dL (8.4-10.2); CREATININE, serum 1.06 mg/dL (0.57-1.11); POTASSIUM 4.2 mmol/L (3.5-4.5)
--- NOTE | 2022-02-09 18:14 | NUR ---
PT LAYING SUPINE IN BED ON ROOM AIR. PT STATES THAT SHE HAD AN EPISODE OF DIARRHEA. I ASKED PT TO NOT FLUSH NEXT TIME AND LET USE SEE IT. PT VOICES UNDERSTANDING. PT STATES NO OTHER NEEDS OR CONCERNS. CALL LIGHT IS WITHIN REACH.
[2022-02-09 20:05] VITALS: BP 122/79; PULSE 106; TEMP 99.3
--- NOTE | 2022-02-09 21:31 | NUR ---
Patient assessed around 1930. Denies pain and discomfort. Peripheral INT to left AC. Complained of constipation, and wanted Metamucil. Patient had refused todays dose, so given at that time. BSAx4. Patient has non-pitting edema to BUE and BLE. Voices no questions, needs, or concerns at this time. In bed with call light within reach.
[2022-02-10 00:31] VITALS: BP 143/76; PULSE 74; TEMP 98.9
[2022-02-10 04:44] VITALS: BP 124/83; PULSE 77; TEMP 98.3
--- NOTE | 2022-02-10 05:47 | NUR ---
Patient has voiced no questions, needs, or concerns this shift. In bed with call light within reach.
--- NOTE | 2022-02-10 08:00 | NUR ---
Patient is resting in bed, alert and oriented x 4, asking for water, explained her low sodium status and no free water need. Medications provided. Assessment done. No other needs at this time. Call light within reach.
[2022-02-10 08:07] VITALS: BP 122/69; PULSE 87; TEMP 98.5
--- NOTE | 2022-02-10 09:38 | NUR ---
SW collaborated with physician. Per MD, patient is medically cleared for psych screen. Patients clinical information faxed to [facility].
--- NOTE | 2022-02-10 10:36 | NUR ---
SW notified by charger operator helper that that patient would like to speak with me. Patient asks me for help on getting her out of here. Informed the patient that we are needing to make sure she is medically ok, and that we need her to allow us to draw her labs. Patient agreeable and to have labs drawn. Lab contacted. Phone call received from [facility] stating that since the patient is not presenting with symptoms such as; SI/HI/ or delusions, they are unable to screen her at this time. Phone call made to [facility]. Spoke with visual coordinator who hasn't heard back from their physician yet. Clinical updates faxed to [facility].
[2022-02-10 10:42] LABS: BASO % 0.3 % (0.0-2.0); EOS % 0.6 % (0.0-4.0); GRAN # 4.9 K/mm3 (1.4-6.5); GRAN % 78.2 % (42.2-75.2); HEMOGLOBIN 11.3 g/dl (12.5-16.0); LYMPH # 0.8 K/mm3 (1.2-3.4); LYMPH % 13.2 % (20.0-51.0); MEAN CELL VOLUME 86 fl (80.0-100.0); MEAN CORPUSCULAR HEMOGLOBIN 29 pg (27-31); MEAN CORPUSCULAR HGB CONC 33 g/dl (33.0-37.0); MEAN PLATELET VOLUME 9.4 fl (7.4-10.4); MONO # 0.5 K/mm3 (0.1-0.6); MONO % 7.4 % (1.7-9.3); PLATELET COUNT 276 K/mm3 (130-400); RED BLOOD COUNT 3.95 M/mm3 (4.10-5.30); REDCELL DISTRIBUTION WIDTH-CV 13.7 % (11.5-14.5)
[2022-02-10 10:53] LABS: HEMATOCRIT 33.9 % (37.0-47.0)
[2022-02-10 10:59] LABS: ALBUMIN 2.9 gm/dL (3.4-4.8); CALCIUM 6.5 mg/dL (8.4-10.2); MAGNESIUM 1.6 mg/dL (1.6-2.6); PHOSPHOROUS 5.3 mg/dL (2.3-4.7); POTASSIUM 3.5 mmol/L (3.5-4.5)
--- NOTE | 2022-02-10 11:27 | NUR ---
Phone call made to APS to check to see if the patient has an open case or not. No answer at DCF, and message left. APS report filed: case #[id number]
[2022-02-10 12:00] VITALS: BP 119/73; PULSE 92; TEMP 98.4
--- NOTE | 2022-02-10 12:52 | NUR ---
Call received from [facility] 61. Chewable glucose provided.
--- NOTE | 2022-02-10 13:10 | NUR ---
PT BG 110
--- NOTE | 2022-02-10 14:35 | NUR ---
Phone call made to Laurence at Dr. Prado's office for consultation.
[2022-02-10 15:51] VITALS: BP 104/64; PULSE 86; TEMP 98.6
--- NOTE | 2022-02-10 15:53 | NUR ---
Attempt made to contact the patient's son Phill and was unsuccessful. Message left.
--- NOTE | 2022-02-10 16:05 | NUR ---
[facility] unable to accept this patient as they do not have a bed available. Inessa with [facility] called stating that since we do not have a DPOA-HC and the patient does not have a guardian, they are unable to accept. Phone call made to [facility] to see if they created a DPOA-HC with this patient which they do, listing his son Phill. Request made for the agency to fax a copy of it to me.
--- NOTE | 2022-02-10 19:05 | NUR ---
Patient has had a calm day. She asks continuously about getting placement and the help of the renal social worker. She took most of her medications. Continues with water restriction. Report given to shon ANDREA.
[2022-02-10 19:45] VITALS: BP 127/82; PULSE 83; TEMP 98.5
--- NOTE | 2022-02-10 23:04 | NUR ---
Patient assessed around 1939. Compliant with medications at that time. Denied pain and discomfort. Voices no questions, needs, or concerns at this time. In bed with call light within reach.
[2022-02-11] VITALS (7 sets, daily range): BP systolic 107–128; BP diastolic 68–85; PULSE 76–85; TEMP 97.8–99.1
--- NOTE | 2022-02-11 06:01 | NUR ---
Patient took medications this shift, but is refused lab draw this morning. Unable to talk patient into allowing labs to be drawn at this time. Voices no questions, needs, or concerns at this time. In bed with call light within reach.
[2022-02-11 06:52] LABS: BASO % 0.5 % (0.0-2.0); EOS # 0.2 K/mm3 (0.0-0.7); EOS % 2.7 % (0.0-4.0); GRAN # 4.3 K/mm3 (1.4-6.5); GRAN % 64.7 % (42.2-75.2); HEMOGLOBIN 12.1 g/dl (12.5-16.0); LYMPH # 1.5 K/mm3 (1.2-3.4); LYMPH % 21.9 % (20.0-51.0); MEAN CELL VOLUME 86 fl (80.0-100.0); MEAN CORPUSCULAR HEMOGLOBIN 29 pg (27-31); MEAN CORPUSCULAR HGB CONC 34 g/dl (33.0-37.0); MEAN PLATELET VOLUME 9.3 fl (7.4-10.4); MONO # 0.7 K/mm3 (0.1-0.6); PLATELET COUNT 282 K/mm3 (130-400); RED BLOOD COUNT 4.19 M/mm3 (4.10-5.30); REDCELL DISTRIBUTION WIDTH-CV 13.5 % (11.5-14.5)
[2022-02-11 07:21] LABS: ALBUMIN 3.1 gm/dL (3.4-4.8); CALCIUM 6.7 mg/dL (8.4-10.2); CREATININE, serum 0.93 mg/dL (0.57-1.11); MAGNESIUM 1.6 mg/dL (1.6-2.6); PHOSPHOROUS 5.2 mg/dL (2.3-4.7); POTASSIUM 3.4 mmol/L (3.5-4.5)
--- NOTE | 2022-02-11 08:00 | NUR ---
Patient is sitting in the side of the bed, just finishing brushing her teeth. Alert and oriented x 4, VSS. Complains of the quantity of food she is getting. Asks for Social Working to be placed. Assessment completed, no other needs at this time. Call light within reach.
--- NOTE | 2022-02-11 09:21 | NUR ---
DPOA-HC paperwork received from [facility]. Clinical updates [facility]
--- NOTE | 2022-02-11 14:02 | NUR ---
Patient asks to speak to this SW. SW met with patient who verbalized that i need to "hurry up" on finding her a place to go. Informed the patient that i am still working on it and i would let her know as soon as i found an accepting faciltiy. Patient clinical updates and DPOA-HC paperwork faxed to all of the [facility] facilities. Phone call made to facility that could not accept due to not having a DPOA-HC and notified that we now have one. Message left.
--- NOTE | 2022-02-11 17:21 | NUR ---
Patient is resting in bed, she wants to drink water or tea. Explained reasons of free water restrictions. She is anxiously waiting for placement. VSS, Sodium WNL. BG WNL. Report will be given to night RN.
--- NOTE | 2022-02-11 23:14 | NUR ---
PT ASSESSED AT BEGINNING OF SHIFT. DENIED PAIN. COOPERATIVE WITH MEDS/VITALS TONIGHT. NO ISSUES AT THIS TIME.
[2022-02-12 04:19] VITALS: BP 109/67; PULSE 81; TEMP 98.1
[2022-02-12 07:05] VITALS: BP 112/64; PULSE 80; TEMP 98.5
[2022-02-12] MEDS ORDERED: CALCIUM CITRAT950 MG PO (07:11)
[2022-02-12] MEDS ORDERED: JARDIANCE10 PO (07:12)
--- NOTE | 2022-02-12 13:01 | NUR ---
[facility] declines as they feel this patients post stay needs to more then that can handle and the high placement need post stay. [facility] does not currently have a bed and have a wait list of about 8 prior to this patient. [facility] is currently on diversion due to no beds. [facility] is interested in the patient but the earliest they will have a bed possibly available is 02/17. [facility] but they currently have a wait list and this patient is 5th. Phone call made to and message left for Inessa ( food services coordinator)
--- NOTE | 2022-02-12 13:23 | NUR ---
[facility] has declined this patient due to her not being SI/HI, having behaviors and no where to go after they would discharge her. Sw made attempt to contact the patient's son again to discuss case and was unsuccessful. Message left.
[2022-02-12 17:17] VITALS: BP 100/68; PULSE 75; TEMP 98.4
--- NOTE | 2022-02-12 19:03 | NUR ---
Patient is in room watchin television. She has been refusing insulin, lovenox, supplements ant vital signs. Placement situation was explained. Report given to night RN.
[2022-02-12 20:56] VITALS: BP 101/65; PULSE 80; TEMP 97.7
[2022-02-13 07:29] VITALS: BP 111/68; PULSE 73; TEMP 98
--- NOTE | 2022-02-13 08:30 | NUR ---
Patient refusing lovenox and insulin this AM. Did take PO medications without issue.
[2022-02-13 11:05] VITALS: BP 92/53; PULSE 67; TEMP 98.2
--- NOTE | 2022-02-13 16:04 | NUR ---
Patient has had an uneventful day. Has pushed the call light several times requesting a visit from the special agents. Has been A&Ox4 just forgetful. Did refuse several medications this AM as well as her insulin. No other c/o at this time. Denies needs. Call light in reach. Will monitor.
[2022-02-13 17:28] VITALS: BP 97/58; PULSE 108; TEMP 98.3
--- NOTE | 2022-02-13 19:00 | NUR ---
Pt laying in bed, assessment compelted. Denies any needs at this time.
[2022-02-13 20:54] VITALS: BP 100/60; PULSE 68; TEMP 98.4
[2022-02-14 00:37] VITALS: BP 106/68; PULSE 71; TEMP 97.9
[2022-02-14 04:18] VITALS: BP 107/72; PULSE 64; TEMP 97.7
--- NOTE | 2022-02-14 07:00 | NUR ---
the patient had uneventful night. Did receive melatonin per request. No other concerns report to EMRE Upton.
[2022-02-14 07:13] VITALS: BP 109/73; PULSE 64; TEMP 97.8
--- NOTE | 2022-02-14 08:00 | NUR ---
Assessment complete. A&Ox4. Denies pain/nausea/shortness of breath. VS stable. Refused lovenox injection. Glucose with no insulin needed. PCT found a trash bag full of medications in patients room as she was removing items and taking them stating "im just taking my vitamins." Collected the bag and all of the medications, labeled, and pharmacy called for garbage pick up man. Pills were in bottles, pill holders, and laying in the bottom of the bag so unable to know what was collected. Plan of care discussed for this shift to inculde meds, VS, glucose monitoring and calling for questions/concerns. Verbalizes understanding. Call light in reach. Will monitor.
--- NOTE | 2022-02-14 12:30 | NUR ---
Patient very agitated because meal served for lunch she does not like. Lashing out at staff and refusing blood sugar/vitals. New tray ordered for patient. Will monitor.
--- NOTE | 2022-02-14 12:53 | NUR ---
ABEL received phone message from the patient's son Phill. At this time Phill is stating that he is agreeable to being the patient's guardian. Phill voices his frustrations with his mother and asks where her car is at. According to him, when the patient was at [facility], she withdrew approx. 30K out of her savings account and "hid" it. Phill is unsure if his mothers money is in the care or not. Paperwork for temporary guardianship emailed to this sw, in addition to the patients certificate of service paperwork for her court appointment on January @1030. At 1000am ABEL facilitated zoom meeting between claims attorney Gutierrez Arreguin and the patient to present the paperwork to the patient. All questions answered by claims attorney. Patient verbalizes that she does not wish to be present for the meeting. 0955: Phill called stating that he wanted to retract his previous statement that he does not want to serve as the patients guardian and that he does not want anything to do with her or her care anymore. His reasoning is that it is addint a lot of stress in his life. He is planning on mcc "soon" and will be moving him and his family away from [place]. Alonzo Fitzgerald notified. Patient asked if she knew where her car was at and replies "he police have it in storage". Phone call made to the [facility] who confirms that they do not have the patients car in the inpound. [facility] states that when the patient checked herself out of [facility], one of the agency staff drove the patient up with another staff member following. Patient's car was parked at her apartment and the keys were left with the patient. ABEL spoke with Alonzo Fitzgerald via phone on the above. He states that [facility] is thinking about accepting the patient back only on the condition she has a guardian in place. Alonzo states that if Phill was to revoke temporary guardianship, then it could be 6+ months to find someone else. Alonzo states he will reach out to Phill.
--- NOTE | 2022-02-14 14:04 | NUR ---
Patient still agitated about lunch and asking for "secret service." Refusing 1400 medications.
[2022-02-14 15:30] VITALS: BP 100/68; PULSE 68; TEMP 98
--- NOTE | 2022-02-14 15:47 | NUR ---
Level 1 care assessment completed with the patient and forms have been sent to her son Zen/FAMILIA- for signature. Will fax off once signed forms are returned.
--- NOTE | 2022-02-14 18:06 | NUR ---
Patient had a fairly uneventful day-did get agitated and refuse vitals/blood sugars. Denied pain. VS remained stable. Denies current needs. Call light in reach. Will monitor.
[2022-02-14 20:21] VITALS: BP 113/57; PULSE 64; TEMP 97.4
[2022-02-15 00:31] VITALS: BP 122/74; PULSE 61; TEMP 97.4
[2022-02-15 04:57] VITALS: BP 116/98; PULSE 72; TEMP 97.6
--- NOTE | 2022-02-15 05:30 | NUR ---
PT HAD AN OVERALL OK NIGHT. PT REFUSED EVENING MEDS, HOWEVER PT DID LATER ON REQUEST SOMETHING TO HELP HER SLEEP. PT GIVEN HER EVENING DOSE OF MELATONIN. PT FELT THE MELATONIN WAS NOT EFECTIVE FOR HER. HOSPITALIST CALLED PER PT'S REQUEST, FOR SOMETHING STRONGER. NO NEW ORDERS AT THIS TIME. WHILE GIVING PT'S MORNING MEDS, PT REQUESTED SOMETHING FOR ANXIETY. REQUEST PASSED ON TO DAYSHIFT RN TO TALK TO ON COMING HOSPITALIST DURING ROUNDS, TO SEE IF THEY WANTED TO RESTART ANY OF HER PSYCH MEDS. CALL LIGHT WITHIN REACH.
[2022-02-15 08:00] VITALS: BP 123/70; PULSE 73; TEMP 97.8
--- NOTE | 2022-02-15 12:17 | NUR ---
Shift assessment preformed. Some of the scheduled medications given. Patient refusing remainder of medications. VSS. Patient A&O. Noon blood sugar and vital signs refused. Patient denies any pain, discomfort, SOA, or further needs at this time. Call light in reach.
[2022-02-15 20:55] VITALS: BP 120/75; PULSE 75; TEMP 97.7
[2022-02-16] VITALS (7 sets, daily range): BP systolic 116–140; BP diastolic 67–88; PULSE 74–80; TEMP 97.6–98.7
--- NOTE | 2022-02-16 06:00 | NUR ---
ASSESSMENT COMPLETE FOR THIS SHIFT. PT PACING HER ROOM OBSESSING ABOUT EVERYTHING. FIRST PT WAS OBSESSING ABOUT HER IV AND NEEDING A NEW ONE, ("OLD ONE NO GOOD, TOO MUCH TROUBLE."). DUE TO PT PICKING AT IT AND THE SITE LOOKING PRETTY BAD, OLD INT PULLED DUE TO RISK OF INFECTION. UNABLE TO RESTART AN IV SITE FOR PT AT THIS TIME. PT ALSO OBSESSED ABOUT HER MEDS, THE AMOUNT, WHY SHE COULD GET HER PYSCH MEDS, SHE NEEDS MORE METAMUCIL, SHE NEEDS STRONGER ATIVAN, HER SLEEP MEDS NOT WORKING, ETC. PT HAS BEEN UP ALL NIGHT FOR THE LAST TWO SHIFTS. SHE CAN NOT SLEEP. THE MELATONIN AND 0.25 ATIVAN ARE NOT EFFECTIVE, ENOUGH TO HELP PT SLEEP. WILL CONTINUE TO MONITOR AND PASS ON TO ON COMING RN. CALL LIGHT WITHIN REACH.
--- NOTE | 2022-02-16 08:05 | NUR ---
Shift assessment preformed. Ativan, Lexapro, and Ure NA given. Patient refused remainder of medications. Patient alert and oriented. Patient reports that she has not slept all night. Patient denies any pain, discomfort, SOA, or further needs at this time. Call light in reach.
--- NOTE | 2022-02-16 19:34 | NUR ---
Patient has had an uneventful day. VSS. Patient A&O. Call light in reach.
[2022-02-17 04:27] VITALS: BP 121/76; PULSE 68; TEMP 98.2
--- NOTE | 2022-02-17 05:00 | NUR ---
ASSESSMENT COMPLETE FOR STRUCTURAL WORKER. SEROQUEL GIVEN FOR PT SLEEPLESSNESS. SEROQUEL WAS EFFECTIVE UNTIL ABOUT TWO HOURS BEFORE SHIFT CHANGE, WHEN SHE STARTED CALLING OUT ON THE CALL LIGHT AND WALKING OUT OF HER ROOM, SAYING SHE NEEDS ENERGY. WILL CONTINUE TO MONITOR. CALL LIGHT WITHIN REACH.
[2022-02-17 07:39] VITALS: BP 137/83; PULSE 70
[2022-02-17 08:00] VITALS: BP 132/77; PULSE 73; TEMP 98
--- NOTE | 2022-02-17 08:00 | NUR ---
Pt is lying down on bed. Pt is constantly waking up and ambulating requests for medication and food. Nursing staff reoriented pt as needed. Call light within reach.
[2022-02-17 12:03] VITALS: BP 115/76; PULSE 70; TEMP 98.4
[2022-02-17 15:13] VITALS: BP 128/83; PULSE 73; TEMP 97.7
--- NOTE | 2022-02-17 16:07 | NUR ---
Buttermilk Drier Operator received signed CARE Assessment from patient's son, Zen. SW faxed CARE to [facility], then placed it in patient's chart. ABEL contacted [facility]. ABEL was advised they are declining referral as they do not have the staffing to take patient at this time. ABEL contacted Tiffanie at [facility] about patient. Tiffanie requested records and is unsure if they would be able to accept or not, even with a guardian.
--- NOTE | 2022-02-17 16:40 | NUR ---
Microstrategy Architect faxed records to [facility].
--- NOTE | 2022-02-17 18:06 | NUR ---
Patient has been requesting pain medication and food throughout the shift. Asking for "more energy" Drowsy and resting throughout the day. Reporting pain, no pain medication ordered. A&Ox3 with intermittent confusion. VSS. Refusing insulin. Call light within reach
[2022-02-17 19:53] VITALS: BP 144/80; PULSE 73; TEMP 97.6
[2022-02-18 00:24] VITALS: BP 139/76; PULSE 78; TEMP 97.9
[2022-02-18 03:50] VITALS: BP 115/78; PULSE 69; TEMP 97.8
--- NOTE | 2022-02-18 06:00 | NUR ---
ASSESSMENT COMPLETE FOR CABIN CREW. DURING MY ASSESSMENT OF PT, PT SOUNDED WHEEZY AND SEEMED TO HAVE A DIFFICULT TIME CATCHING HER BREATH. HOSPITALIST CALLED. PO LASIX AND PRN BREATHING TREAMENT ORDERED. RT CALLED FOR EVALUATION. PO LASIX GIVEN. WILL CONTINUE TO MONITOR PT. CALL LIGHT WITHIN REACH.
[2022-02-18 07:28] VITALS: BP 134/76; PULSE 71; TEMP 97.5
--- NOTE | 2022-02-18 08:00 | NUR ---
Patient is sitting on the side of the bed having breakfast. Alert. She took her pils but denies taking lovenox and supplement. Continues with BLE and BUE edema. Assessment completed. No other needs at this time. Call light within reach.
[2022-02-18 11:32] VITALS: BP 128/63; PULSE 70; TEMP 98
--- NOTE | 2022-02-18 12:41 | NUR ---
Patient complains of SOB, her O2 SAT is 95% or up. Dynamat in place to continuous monitoing. Patient complains of not feeling well and swelling in her face, not noticeable. Pt is just in bed at 45 degrees. She does not want to eat. She regularly is a good eater. Continue monitoring.
--- NOTE | 2022-02-18 14:21 | NUR ---
Patient continues complaining of SOB, O2 SAT at 95-100 % at RA, HR 89. Call placed to Dr. Del Rosario ordered a chest x ray and EKG.
[2022-02-18 15:06] VITALS: BP 146/90; PULSE 90; TEMP 97.4
--- NOTE | 2022-02-18 16:05 | NUR ---
Tiffanie at [facility] is reviewing referral but is concerned patient may need a level II assessment. SW attempted to contact the CARE Program at [facility] three times during the day and got a busy signal. SW will continue to attempt contact. Patient may need Level II placement. ABEL updated Alonzo Fitzgerald, Ground Intelligence Officer.
[2022-02-18 16:21] LABS: CALCIUM 7.5 mg/dL (8.4-10.2); CREATININE, serum 0.97 mg/dL (0.57-1.11); POTASSIUM 5.4 mmol/L (3.5-4.5)
--- NOTE | 2022-02-18 17:14 | NUR ---
Patient's sodium and chloride lab results are low, reported to Dr. Del Rosario. Patient refusing any interventions: start an IV access, oral medications, etc. Hospitalists aware.
--- NOTE | 2022-02-18 18:38 | NUR ---
Patient is resting in bed, continues refusing treatment. Report will be given to night RN.
--- NOTE | 2022-02-18 21:50 | NUR ---
PT refused 1999 VS, 2100 lab draw and BGM and all scheduled meds, will not speak to this RN just shakes head yes or no to questions
[2022-02-19 04:30] VITALS: BP 125/87; PULSE 67; TEMP 98.4
[2022-02-19 07:35] VITALS: BP 140/99; PULSE 70; TEMP 97.5
--- NOTE | 2022-02-19 07:37 | NUR ---
PT CONTINUES TO REFUSE ALL MEDS AND TX'S THIS SHIFT, CALLS FOR HELP TO RESTROOM AND TO REPOSITION IN BED. MULTIPLE LAB TECHS ATTEMPTED TO DRAW LAB BUT PT REFUSED.
--- NOTE | 2022-02-19 08:00 | NUR ---
Shift assessment completed. Pt ambulating constantly expressing disconfort. Refused all medications besides Ure-NA. Pt no longer has a peripheral line. Call light within reach.
[2022-02-19 12:08] VITALS: BP 132/95; PULSE 77; TEMP 99.5
--- NOTE | 2022-02-19 16:31 | NUR ---
It Application Architect received a message from Alonzo Fitzgerald, Automation And Controls Instructor who advised there will not be a zoom hearing tomorrow that patient needs to participate in. The Mail Examiner will review the guardianship application and make a decision. SW contacted the [place] Guardianship Program and left a message. Patient's son, Phill is agreeable to be guardian until a guardian can be established through the program. SW faxed referral to the ten [place] Level II nursing homes for review. These facilities cannot consider patient until Level II is completed and [facility]. SW to follow up with the [facility] on [facility]ging to determine time frame for Level II screen.
[2022-02-19 16:41] VITALS: BP 136/98; PULSE 75; TEMP 97.3
[2022-02-19 19:21] VITALS: BP 196/103; PULSE 76; TEMP 97.5
--- NOTE | 2022-02-19 19:44 | NUR ---
Patient has had a rough day. Patient has been refusing cares all day. VSS. Blood sugars WNL. Call light in reach.
--- NOTE | 2022-02-19 20:00 | NUR ---
pt's Bp elevated, refusing to take any po meds, refused IV placement for meds as well. pt has been back and forth to desk and room, asking for help, but not taking any help offered. unsteady on feet but refuses to call for help, and refuses to stay in bed, refuses to have bed alarm on.
--- NOTE | 2022-02-20 04:57 | NUR ---
AROUND 0425 PT FELL IN ROOM. NURSING STAFF HEARD LOUD CRASH, THIS RN RAN TO THE ROOM TO ASSESS WHAT HAPPENED. THE PATIENT FELL, IT WAS UNWITNESSED. NEURO ASSESSMENT MADE, PT STATES SHE IS IN [place], WHEN REORIENTED, SHE SAID SHE KNOWS SHE IS IN [place] AT THE HOSPITAL. THE PATIENT HAD AN IMMEDIATE BUMP ON THE LEFT SIDE OF THE HEAD. CALLED [facility] WHO ORDERED A HEAD AND CSPINE CT SCAN. THE PATIENT WAS TAKEN IMMEDIATELY AND IS BACK IN BED AT THIS TIME. THE PATIENT IS HAVING A DIFFICULT TIME TRACKING AND HAS BECOME VERY SLEEPY. ONCE THE PATIENT GOT BACK IN BED SHE FELL ASLEEP IMMEDIATELY. WILL CONTINUE TO MONITOR.
[2022-02-20 05:08] VITALS: BP 146/99; PULSE 76
--- NOTE | 2022-02-20 06:24 | NUR ---
pt had unwitnessed fall in room when attempting to use restroom, pt has confusion, but has refused most of ordered cares, refuses to use call light, gets out of bed frequently. fall precautions reinforced, bed alarm on, sleeping at this time.
[2022-02-20 07:37] VITALS: BP 139/81; PULSE 80; TEMP 97.7
--- NOTE | 2022-02-20 09:00 | NUR ---
Shift assessment completed. Wheezing on expiration and crackles on billateral lungs bases. Encouraged her to take lasix, pt still refusing meds. Pt lying down in bed. third shift lieutenant reported that the pt had an unwitnessed fall during the night. Fall precautions in place. Call light within reach.
--- NOTE | 2022-02-20 11:03 | NUR ---
[place]man was notified by Alonzo Fitzgerald, Senior Technical Specialist that Guardianship documents are being signed and he will send them once they are finalized. Alonzo has been in contact with Phill to purchase a burial plot to spend down patient's resources so that she can apply for Medicaid. Alonzo will provide documentation of this when it's completed, likely Thursday time frame.
[2022-02-20 12:08] VITALS: BP 136/95; PULSE 78; TEMP 97.9
[2022-02-20 16:00] VITALS: BP 140/98; PULSE 84; TEMP 97.7
[2022-02-20 19:51] VITALS: BP 120/72; PULSE 98; TEMP 97.5
--- NOTE | 2022-02-20 23:31 | NUR ---
Pt alert. Often forgets limitations and gets OOB without calling. Difficult for pt to explain her wants/needs. Fall precautions in place. Pt refusing to take medications this evening. Educated pt on medication purpose and importance of taking medications, but pt ignores me and does not respond. Pt is also refusing IV access. Pt tolerating PO. No free water enforced. Pt denies pain. Shift assessment performed. Medications administered per orders and education provided. VS stable. Afebile. On room air. BP stable. FSBS 100 this evening. Pt sounds dsypenic on exertion. NO SOB noted at rest, but pt is SOB during exertion/ambulation. Expiratory wheezing noted. 2+ BLE noted and 1+ BUE edema noted. No weeping. Pt has weak ambulation. Pt had a fall last night. Noted a small bump on the pt's forehead from the fall. Pt is unsteady on her feet in comparison to last week. Pt is currently resting and does not report any questions at this time. Will continue to educate pt on medication importance. Will continue to monitor.
[2022-02-21 00:11] VITALS: BP 118/70; PULSE 74; TEMP 97.3
--- NOTE | 2022-02-21 05:28 | NUR ---
No changes overnight. Pt appears drowsy, but alert to speech. Continues to refuse medications. Pt refused vitals this morning. Previous VS stable. Pt SOB on exertion but remains on room air satting WNL. Pt tolerating PO. Continues to be impulsive and get OOB without assistance. No free water enforced. Educated pt multiple times on importance of taking prescribed medications, but pt continues to ignore me and refuse. Pt up to void many times overnight. Pt does not report any questions at this time, will continue to monitor.
[2022-02-21 08:00] VITALS: BP 135/71; PULSE 78; TEMP 97.9
--- NOTE | 2022-02-21 09:00 | NUR ---
cattle alley worker contacted [place] [facility] office, spoke with Noelle, and requested assistance with return call from their CARE worker to confirm when a Level II assessment will be completed as this determines placement for patient in a Level II nursing facility. Noelle stated that she will reach out to Lisa in their office and request a response to [facility] as soon as possible. [facility] will fax our Level I Care assessment to [facility] office fax at [phone].
--- NOTE | 2022-02-21 09:06 | NUR ---
PT SITTING UP IN BED. MORNING MEDICATIONS REFUSED, THIS RN EDUCATED PT ON CONSEQUENCES OF REFUSING MEDICATIONS, PT NOT ABLE TO VERBALIZE UNDERSTANDING. SHIFT ASSESSMENT COMPLETED. PT ALERT AND ORIENTED AT TIME, BUT SPEAKS INCOHERENTLY AT OTHER TIMES. CONTINUING TO MONITOR.
[2022-02-21 11:16] VITALS: BP 126/79; PULSE 78; TEMP 98
--- NOTE | 2022-02-21 15:18 | NUR ---
Associate Application Developer re-faxed CARE assessment per [facility] Request. SW then emailed [facility] to follow up and received an automated response that advised they prefer CARE Assessments be emailed to is possible. ABEL scanned CARE and emailed it to this address, requesting follow up as soon as possible. ABEL also contacted [employer] Financial Counselor and left a message advising that patient will need assistance with Medicaid application early next week after required documentation from the attorneys is received. Funeral Pre Arrangement Counselor advised she received a request from [facility] for updates. tobacco checkout clerk faxed requested updates.
[2022-02-21 15:29] VITALS: BP 146/88; PULSE 79; TEMP 97.9
[2022-02-21 20:40] VITALS: BP 119/76; PULSE 78; TEMP 98.3
[2022-02-21 23:58] VITALS: BP 128/69; PULSE 70; TEMP 98.1
[2022-02-22 00:17] VITALS: BP 128/69; PULSE 70; TEMP 98.1
[2022-02-22 03:24] VITALS: BP 126/74; PULSE 86; TEMP 98.1
[2022-02-22 07:28] VITALS: BP 126/81; PULSE 80; TEMP 98
--- NOTE | 2022-02-22 08:00 | NUR ---
Assessment complete. Seems confused this AM and agitated stating she wants to leave this place because every one is mean to her. Noted to have bilat coarse lung sounds. Refusing AM medications except vitamins, supplements and metamucil. States she is not taking all these medications and is sick of people bringing them in. Plan of care discussed for this shift but states she does not care what we want. Call light in reach. Will monitor.
[2022-02-22 08:52] LABS: COLLECTION METHOD CLEAN CATCH
[2022-02-22 09:03] LABS: MUCOUS Present (NOT PRESENT); PH 7 (5-8); URINE APPEARANCE Hazy (CLEAR/HAZY); URINE BACTERIA Rare /hpf (NONE SEEN); URINE BLOOD Negative (NEGATIVE); URINE COLOR Yellow (YELLOW); URINE GLUCOSE Negative (NEGATIVE); URINE KETONE Negative (NEGATIVE); URINE NITRATE Negative (NEGATIVE); URINE PROTEIN(semi-quant) Negative (NEGATIVE); URINE WBC 20-50 /hpf (0-2)
[2022-02-22 09:09] LABS: TRICYCLIC ANTIDEPRESS URINE NEGATIVE
[2022-02-22 11:09] VITALS: BP 129/74; PULSE 76; TEMP 98.1
[2022-02-22 16:19] VITALS: BP 120/74; PULSE 93; TEMP 97.8
--- NOTE | 2022-02-22 18:10 | NUR ---
Patient had an uneventful day. Refused some of her medications but was able to administer a few. Has c/o not being able to have a BM-new medications ordered and administered. Denies pain/nausea/shortness of breath. VS remained stable. Denies current needs. Call light in reach. Will monitor.
[2022-02-22 19:42] VITALS: BP 121/79; PULSE 88; TEMP 98.2
[2022-02-23 00:43] VITALS: BP 116/75; PULSE 79; TEMP 98.5
[2022-02-23 03:42] VITALS: BP 128/89; PULSE 107; TEMP 98.5
--- NOTE | 2022-02-23 07:45 | NUR ---
Assessment complete. A&Ox4. Denies nausea/shortness of breath. States "My stomach hurts, I need to poop." Bowel regimen ongoing. Has ambulated in the hallways with stand by assist this AM. VS remain stable. Refused AM lab draw. Was able to convince patient to take most of her AM medications. Patient will pick through cup and choose which ones she wants to take. Today took most of them but refused metoprolol, protonix, synthroid and lovenox. Plan of care discussed for this shift to include meds, stool softner, VS, ambualtion and calling for questions/concerns. Verbalizes understanding. Call light in reach. Will monitor.
[2022-02-23 07:55] VITALS: BP 131/77; PULSE 87; TEMP 98
--- NOTE | 2022-02-23 08:22 | NUR ---
Patient requesting metamucil early last two shifts stating "I need it now for poopoo to come out." Given early. Will contact pharmacy to adjust times of admin.
--- NOTE | 2022-02-23 10:13 | NUR ---
Patient c/o headache. New orders received for tylenol. Given at this time. Will monitor.
[2022-02-23 11:57] VITALS: BP 114/75; PULSE 86; TEMP 98
--- NOTE | 2022-02-23 15:49 | NUR ---
Patient reporting she still cant have a BM. New orders recevied for suppository. Given at this time. Will monitor.
[2022-02-23 16:00] VITALS: BP 117/72; PULSE 92; TEMP 97.8
--- NOTE | 2022-02-23 18:31 | NUR ---
Patient finally had two bowel movements post suppository. Denied nausea/shortness of breath. VS stable. Denies current needs. Call light in reach. Will monitor.
[2022-02-23 19:27] VITALS: BP 119/77; PULSE 87; TEMP 97.4
[2022-02-24 00:22] VITALS: BP 126/81; PULSE 82; TEMP 97.9
[2022-02-24 03:26] VITALS: BP 135/76; PULSE 90; TEMP 97.3
--- NOTE | 2022-02-24 05:45 | NUR ---
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 PT PT RESTING IN BED WATCHING TV. PT CONTINUES TO REFUSE HER NIGHT TIME MEDS. PT TOOK A COUPLE OF WALKS THIS SHIFT. PT DENIED PAIN, N,V,D OR DIZZINESS. BED ALARM ON. CALL LIGHT WITHIN REACH.
[2022-02-24 07:25] VITALS: BP 125/74; PULSE 87
[2022-02-24 11:49] VITALS: BP 122/81; PULSE 90
--- NOTE | 2022-02-24 13:49 | NUR ---
Shift assessment preformed. Patient refused all schedule medications with the exception of Ure-NA. VSS. Patient A&O. Patient denies any pain, discomfort, SOA, or further needs at this time. Call light in reach. Fall precautions in place.
[2022-02-24 16:00] VITALS: BP 118/92; PULSE 108; TEMP 98.2
--- NOTE | 2022-02-24 17:13 | NUR ---
Continuity Reader was contacted by Jannette at the [place] [employer] who advised they need a referral from [facility] to start case for patient. ABEL updated Jannette that the son is temporary guardian but only agreed to do so until a state guardian could be established. ABEL contacted nAdrew at [facility] who advised ABEL Stanford's report screened out. SW will make another report with updated information. ABEL and SW Director made contact with [facility] and requested a call back immediately. ABEL advised that several emails and messages have been left. ABEL contacted the [email or web address] email, Lisa Brooks's email, and left additional voicemails at the CARE office. ABEL was provided with Lc Connell's contact information, who is above Lisa Brooks (ph#[phone]). ABEL left Lc a message. ABEL then received a message from Lc requesting patient's information be emailed to him. The message also indicated that at this time, Level II's are taking up to 30 days or longer. ABEL emailed patient's CARE to Lc. ABEL then received a call from Roslyn at [facility] (ph#[phone]) who advised she is "working on it" and that she has received patient's CARE. ABEL received a call from [facility] (Level II). They will be on stand by for when Level II is completed.
--- NOTE | 2022-02-24 18:00 | NUR ---
Patient has had an ok day. Patient A&O. VSS. Patient denies any pain, discomfort, SOA, or further needs at this time. Patient continues to refuse medications. Call light in reach. Fall precautions in place.
[2022-02-24 20:35] VITALS: BP 112/71; PULSE 88; TEMP 98.1
[2022-02-25 00:29] VITALS: BP 116/77; PULSE 87; TEMP 97.7
--- NOTE | 2022-02-25 02:15 | NUR ---
Pt alert and oriented, appears to be improving when OOB ambulating. Pt appears to be less SOB when ambulating and ambulates more steady with the walker and a stanbu assist. Follows commands. Pt continuing to refuse ordered medications for this evening. Re-educated pt multiple times on importance of taking prescribed medications and consistently taking them in r/t her condition, but pt continued to refuse. Attempted again later with just the pt's ordered PO antibx and pt still refused to take just one medication this evening. Pt is restless and has ambulated many times this evening. Often forgets limitations and gets OOB without calling for assistance first. Re-educated pt on importance/purpose of calling before getting OOB. Fall precautions in place. Bed/chair alarms on, bed/chair low and locked, yellow socks on, walker in room, gait belt in room. No free water resriction enforced. Offered pt applesauce snack and pt initally refused, but later ate it. Shift assessment performed. Pt refused all medications, even with education being provided mutliple times to the pt. Pt expresses no interest in education. VS stable. Pt remains on room air. No significant skin issues noted. 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 Pt does not report any questions at this time. Bed low and locked, call munoz within reach. No new concerns at this time.
[2022-02-25 03:49] VITALS: BP 105/80; PULSE 85; TEMP 97.6
--- NOTE | 2022-02-25 04:56 | NUR ---
No adverse events overnight. Pt alert and oriented, but restless overnight. Pt was out ambulating in the del cid with the walker and a standby assist the majority of the night. Pt continues to refuse all medications overnight, despite frequent education. I was able to get the pt to sit down in her room finally around 0430 this morning. Fall precautions in place. Bed/chair alarm on. Pt still refusing tele and an IV start. Pt does not report any questions at this time. Bed low and locked, call be within reach. No new concerns at this time.
--- NOTE | 2022-02-25 05:53 | NUR ---
Pt did take her ordered synthroid this morning, but refused the protonix. Continuing to educate pt on importance of taking medications and taking them consistently. No other changes at this time.
[2022-02-25 07:56] VITALS: BP 112/75; PULSE 87; TEMP 97.7
--- NOTE | 2022-02-25 08:32 | NUR ---
Shift assessment preformed. Patient recieved three medications this AM but refused the remainder of scheduled medications. VSS. BG WNL. Patient A&OX2. Patient reoriented with no issues. Patient is currently resting in chair. Call light light in reach. Fall precautions in place.
[2022-02-25 11:21] VITALS: BP 120/82; PULSE 83; TEMP 97.6
--- NOTE | 2022-02-25 15:59 | NUR ---
APS report filed for state guardianship program. [id number]
--- NOTE | 2022-02-25 16:26 | NUR ---
Supervisor Cutting And Sewing Room received copy of signed Guardianship order. ABEL placed form on chart. Phill will be guardian until a state guardianship can be established through the Guardianship Program. ABEL Stanford made report to Adult Protective Services. ABEL contacted Tiffanie at [facility] to inquire about taking patient before a Level II assessment is done. Tiffanie does not think they are able to do this but requested updates. ABEL faxed. ABEL also contacted Zayra at [facility] who advised they cannot take patient until Level II is completed, per [facility] policy.
[2022-02-25 17:05] VITALS: BP 123/95; PULSE 92; TEMP 98.5
[2022-02-25 20:31] VITALS: BP 106/73; PULSE 80; TEMP 98.7
--- NOTE | 2022-02-25 20:56 | NUR ---
Patient assessed around 2019. No outward s/sx of pain or discomfort noted, such as facial grimacing and moaning. LS CTA. HRR. No IV access, as patient has been refusing. Lotion and non-skid socks applied to feet. This nurse able to get patient to take Omnicef and Trazadone. Will try other medications later. Patient quiet and not talking during assessment, but making hand jestures to answer questions. When this nurse stated that I was going to leave room but check on her later, patient yelled "where are you going" and started laughing. Patient stated that she was joking around and tricking this nurse, when she wasn't talking. Seems to be in a good mood tonight. In recliner with call light within reach. Stated she was still eating. Voices no questions, needs, or concerns at this time.
--- NOTE | 2022-02-26 05:57 | NUR ---
Unable to get patient to take any other medications this shift. Did go on a walk a few times with staff during the night. In bed with call light within reach. Bed alarm on. Denies having pain and discomfort.
[2022-02-26 07:19] VITALS: BP 102/64; PULSE 85
--- NOTE | 2022-02-26 07:22 | NUR ---
PT RESTING IN BED
[2022-02-26 12:00] VITALS: BP 117/87; PULSE 78; TEMP 98.5
[2022-02-26 19:39] VITALS: BP 108/84; PULSE 68; TEMP 98
--- NOTE | 2022-02-26 20:52 | NUR ---
Patient assessed around 1944. Patient has been in wheelchair at nurse's station for a while. Assisted to bathroom and into recliner in room. Chair alarm on. Took ABX and Trazadone. Voices no questions, needs, or concerns at this time. Call light within reach.
[2022-02-26 23:48] VITALS: BP 123/81; PULSE 84; TEMP 98.2
[2022-02-27 05:01] VITALS: BP 117/71; PULSE 76; TEMP 97.7
--- NOTE | 2022-02-27 05:57 | NUR ---
Patient in bed with call light within reach. High fall risk precautions in place. Denies pain and discomfort. Not wanting to take medications this morning.
[2022-02-27 07:11] VITALS: BP 116/69; PULSE 77; TEMP 98
[2022-02-27 11:45] VITALS: BP 130/56; PULSE 73; TEMP 98.4
[2022-02-27 16:00] VITALS: BP 96/68; PULSE 73
[2022-02-27 16:40] VITALS: BP 121/73; PULSE 72; TEMP 97.9
[2022-02-27 19:58] VITALS: BP 101/72; PULSE 74; TEMP 98.5
--- NOTE | 2022-02-27 20:46 | NUR ---
Patient assessed around 193. Did take all medications tonight per orders. Denies pain and discomfort. Voices no questions, needs, or concerns at this time. In recliner with call light within reach.
[2022-02-28 00:15] VITALS: BP 119/67; PULSE 80; TEMP 97.6
[2022-02-28 05:13] VITALS: BP 122/74; PULSE 78; TEMP 97.6
--- NOTE | 2022-02-28 05:32 | NUR ---
Patient has denied pain and discomfort this shift. In bed with call light within reach. Took all medications per orders this shift. Bed alarm on.
[2022-02-28 07:03] LABS: BASO # 0.1 K/mm3 (0.0-0.2); BASO % 1.7 % (0.0-2.0); EOS # 0.1 K/mm3 (0.0-0.7); GRAN # 1.4 K/mm3 (1.4-6.5); GRAN % 39.3 % (42.2-75.2); HEMOGLOBIN 11.8 g/dl (12.5-16.0); LYMPH # 1.5 K/mm3 (1.2-3.4); LYMPH % 41.3 % (20.0-51.0); MEAN CELL VOLUME 86 fl (80.0-100.0); MEAN CORPUSCULAR HEMOGLOBIN 28 pg (27-31); MEAN CORPUSCULAR HGB CONC 32 g/dl (33.0-37.0); MEAN PLATELET VOLUME 9.8 fl (7.4-10.4); MONO # 0.5 K/mm3 (0.1-0.6); MONO % 13.4 % (1.7-9.3); PLATELET COUNT 259 K/mm3 (130-400); RED BLOOD COUNT 4.29 M/mm3 (4.10-5.30); REDCELL DISTRIBUTION WIDTH-CV 14.6 % (11.5-14.5)
[2022-02-28 07:18] LABS: HEMATOCRIT 36.8 % (37.0-47.0)
[2022-02-28 07:23] LABS: CREATININE, serum 1.13 mg/dL (0.57-1.11); POTASSIUM 3.3 mmol/L (3.5-4.5)
[2022-02-28 08:00] VITALS: BP 113/73; PULSE 73; TEMP 98.1
--- NOTE | 2022-02-28 10:08 | NUR ---
Shift assessment preformed. All scheduled medications with the exception of the lovenox, which patient refused. Patient requested suppository, which was administered as ordered. VSS. Patient A&O. Patient denies any pain, discomfort, SOA, or further needs at this time. Call light in reach. Fall precautions in place.
[2022-02-28 12:00] VITALS: BP 103/60; PULSE 72
--- NOTE | 2022-02-28 13:42 | NUR ---
Associate Relations Specialist contacted patient's son, Phill and provided update.
[2022-02-28 16:08] VITALS: BP 103/60; PULSE 72
--- NOTE | 2022-02-28 18:00 | NUR ---
Patient has had an ok day. VSS. Patient A&O. Patient denies any pain, discomfort, SOA, or further needs at this time. Call light in reach. Fall precautions in place.
[2022-02-28 20:32] VITALS: BP 119/68; PULSE 70; TEMP 97.9
--- NOTE | 2022-02-28 21:47 | NUR ---
Patient took most medications, declined Metoprolol. Voices no questions, needs, or concerns at this time. In recliner with call light within reach.
[2022-03-01 05:08] VITALS: BP 124/78; PULSE 72; TEMP 98
--- NOTE | 2022-03-01 05:42 | NUR ---
Patient denies pain and discomfort. In bed with call light within reach. Voices no questions, needs, or concerns at this time. Took medications this morning.
[2022-03-01 07:54] VITALS: BP 118/71; PULSE 82; TEMP 98.4
--- NOTE | 2022-03-01 09:08 | NUR ---
PT RESTING IN BED. MORNING MEDICATIONS GIVEN. SHIFT ASSESSMENT COMPLETED. PT DENIES ANY PAIN OR NEEDS AT THIS TIME. ONLY ALERT TO SELF. WILL CONTINUE TO MONITOR.
[2022-03-01 11:50] VITALS: BP 108/65; PULSE 74; TEMP 97.4
[2022-03-01 15:47] VITALS: BP 102/58; PULSE 69; TEMP 98.2
[2022-03-01 20:27] VITALS: BP 111/66; PULSE 68; TEMP 98.4
[2022-03-01 23:57] VITALS: BP 103/63; PULSE 66; TEMP 98.2
--- NOTE | 2022-03-02 05:00 | NUR ---
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 PT RESTING IN HER RECLINER WATCHING A VIDEO ON HER PHONE. PT DENIED GENERAL PAIN, CHEST PAIN, PALPITATIONS, N,V,D, SOB OR DIZZINESS. PT TOOK ALL BUT ONE (LOPRESSOR) OF HER MEDS THIS SHIFT. OTHER THAN TEA, PT EXPRESSED NO ADDITIONAL NEEDS AT THIS TIME. CALL LIGHT WITHIN REACH.
[2022-03-02 05:12] VITALS: BP 111/63; PULSE 65; TEMP 98.2
[2022-03-02 07:27] VITALS: BP 121/72; PULSE 72; TEMP 98.3
--- NOTE | 2022-03-02 10:14 | NUR ---
PT RESTING IN BED. MORNING MEDICATIONS GIVEN. SHIFT ASSESSMENT COMPLETED. PT REPORTS CONSTIPATION, DR. VIRGEN MADE AWARE. DENIES ANY OTHER PAIN OR NEEDS AT THIS TIME. PT PARTIALLY ORIENTED. WILL CONTINUE TO MONITOR.
[2022-03-02 16:12] VITALS: BP 99/51; PULSE 65; TEMP 98.4
[2022-03-03 00:23] VITALS: BP 101/57; PULSE 67; TEMP 98.4
[2022-03-03 08:01] VITALS: BP 116/62; PULSE 65; TEMP 98.2
--- NOTE | 2022-03-03 11:34 | NUR ---
Scheduled medications given, with the exception of lovenox and insulin, which patient refused. Shift assessment prefomed. VSS. Patient A&O. Patient denies any pain, discomfort, SOA, or further needs at this time. Call light in reach. Fall precautions in place.
--- NOTE | 2022-03-03 13:59 | NUR ---
Phone call made to Lucia Siegel to check on care assessment. At this time she is not needing any additional information and will be sending it off to [facility] to start the NORM process. She will notify [facility] who is the agency that will complete the Level ll assessment. Lucia is unsure of what time frame they have to get that assessment done but will check and let me know.
[2022-03-03 15:32] VITALS: BP 115/63; PULSE 62; TEMP 98.3
--- NOTE | 2022-03-03 22:42 | NUR ---
Patient assessed around 2104. Denies pain and discomfort. Agreeable to take citracal and desyrel, but declined other medications. In recliner with call light within reach. Voices no questions, needs, or concerns at this time.
[2022-03-03 23:39] VITALS: BP 112/64; PULSE 68; TEMP 98
--- NOTE | 2022-03-04 05:15 | NUR ---
Patient has denied pain and discomfort. In bed with call light within reach. Voices no questions, needs, or concerns at this time.
[2022-03-04 07:14] VITALS: BP 117/71; PULSE 74; TEMP 97.6
--- NOTE | 2022-03-04 08:00 | NUR ---
Pt sitting down in recliner. Shift assessment completed. A&O X4. VSS. She denies any pain, disconfort or concern at the moment. Pt steady on feet during ambulation. Call light within reach.
[2022-03-04 16:18] VITALS: BP 102/61; PULSE 66; TEMP 97.9
--- NOTE | 2022-03-04 19:07 | NUR ---
Pt sitting down. A&O x4. VSS. Denies any concern, pain, N/V or disconfort. Pt refused to take her afternoon medication. Ambulated on the hallway . Call light within reach.
--- NOTE | 2022-03-04 21:33 | NUR ---
Patient assessed around 2019. Did not want to take all medications this shift, but did take some. Voices no questions, needs, or concerns at this time. In recliner with call light within reach.
[2022-03-05 00:15] VITALS: BP 115/71; PULSE 59; TEMP 97.8
--- NOTE | 2022-03-05 05:41 | NUR ---
Patient has denied pain and discomfort this shift. Voices no questions, needs, or concerns at this time. In bed with call light within reach.
[2022-03-05 07:00] VITALS: BP 123/72; PULSE 72; TEMP 97.9
[2022-03-05 07:04] VITALS: BP 119/74; PULSE 73; TEMP 98.3
--- NOTE | 2022-03-05 08:17 | NUR ---
Shift assessment preformed. Scheduled medications given, with the exception on of lovenox and lexapro, which patient refused. VSS. Patient A&O. Patient denies any pain, discomfort, SOA, or further needs a this time. Call light in reach. Fall precautions in place.
--- NOTE | 2022-03-05 13:53 | NUR ---
Phone call made to Yuliana Dalton who is the [facility]'s inpatient coordinator who is working on the Level ll assessment. She is needing the patient's records from [facility] and is planning on calling for them today. This SW attempted contact [facility] to provide them with Yuliana's contact information and was unsuccessful.
[2022-03-05 15:56] VITALS: BP 100/53; PULSE 69; TEMP 97.4
--- NOTE | 2022-03-05 18:00 | NUR ---
Patient has had an ok day. VSS. Patient A&O. Patient denies any pain, discomfort, SOA, or further needs at this time. Call light in reach. fall precautions in place.
--- NOTE | 2022-03-05 19:43 | NUR ---
Patient assessed around 0. Denies pain and discomfort. Patient not wanting to take medications tonight. At first agreed to take some, but then declined, stating she takes too many medications during the day. Went over each medication and what they are for but continued to decline. Voices no questions, needs, or concerns at this time. In room sitting in recliner. Call light within reach.
[2022-03-05 23:52] VITALS: BP 111/62; PULSE 62; TEMP 98.2
--- NOTE | 2022-03-06 05:08 | NUR ---
Patient has denied pain and discomfort. Voices no questions, needs, or concerns at this time. In bed with call light within reach.
[2022-03-06 07:40] VITALS: BP 123/88; PULSE 74; TEMP 98.8
--- NOTE | 2022-03-06 09:00 | NUR ---
Patient is sitting in the chair, alert and orieted, VSS. Accepted most of her medications. States she is feeling cold and she is wearing her jacket. Assessment completed, no other needs at this time. Call light within reach.
[2022-03-06 15:14] VITALS: BP 119/65; PULSE 66; TEMP 97.6
--- NOTE | 2022-03-06 16:24 | NUR ---
ABEL contacted Yuliana Dalton with [facility] stating that we got a letter from [facility] stating they were closed at this time and that she may not have luck getting ahold of the records she is needing. Stressed the importance of screening this patient.
--- NOTE | 2022-03-06 18:26 | NUR ---
Patient has had a calm day. She complained of having small portions of food. Additional lunch order provided. Report will be given to night RN.
[2022-03-06 20:03] VITALS: BP 118/60; PULSE 69; TEMP 98
--- NOTE | 2022-03-06 21:07 | NUR ---
PT IN BED UPON ENTRY TO ROOM. PT AGREEABLE TO TAKING ORAL MEDS PRIOR TO DOCUMENTATION, HOWEVER UPON HANDING CUP OF PILLS TO PT SHE REFUSED TO TAKE. EDUCATION PROVIDED REGARDING WHAT MEDICATIONS WERE GIVEN. PT REMAINS RESISTANT TO TAKE MEDICATIONS AT THIS TIME. ALERT AND ORIENTED AT THIS TIME.
[2022-03-07 07:14] VITALS: BP 118/70; PULSE 69; TEMP 97.5
--- NOTE | 2022-03-07 09:00 | NUR ---
Patient is sitting in the chair, alert and oriented x 4, VSS. Had breakfast. Denies pain. Do not want to take her medications. Assessment completed, call light within reach.
--- NOTE | 2022-03-07 12:20 | NUR ---
SW received a phone call from Yuliana Dalton stating that the letter that we received that had [employer] on it was not the same company as [facility] and that we had the incorrect information. Phone call made to [facility] ([phone]) and spoke with a accounts receivable representative who then transfered me to the data center solutions architect Lisa ([phone]). Lisa is provided with the phone number and fax number for Yuliana Dalton to contact and send record to. ([phone]) phone called received form Meri at [facility] who informs me that the patient's Level ll care assessment is complete and has been sent to [facility] for screening. [phone])Phone call made to [facility] to see if the screening can be compelted today. Informed that they have not received the assessment yet, but that if it does come in this afternoon it has the possibility to get done today.
--- NOTE | 2022-03-07 19:06 | NUR ---
Patient took her medications in the morning but refused all the rest of interventions along the day. She is stable and eating well. Report given to night RN.
[2022-03-07 23:35] VITALS: BP 113/59; PULSE 76; TEMP 97.4
--- NOTE | 2022-03-08 05:38 | NUR ---
PT HAS HAD UNEVENTFUL SHIFT. DENIES ANY NEEDS, PT HAS REMAINED IN BED ALL NIGHT THIS SHIFT. PT DID REFUSE ALL MEDICAITONS. NO OTHER CONCERNS. CONTINUE TO WAIT FOR PLACEMENT.
[2022-03-08 07:23] VITALS: BP 127/77; PULSE 74; TEMP 98
--- NOTE | 2022-03-08 11:12 | NUR ---
Scheduled medications given, with the exception of lovenox and insulin, which patient refused. Shift assessment preformed. VSS. Patient A&O. Patient denies any pain, discomfort, SOA, or further needs a this time. Call light in reach. Fall precautions in place.
[2022-03-08 15:15] VITALS: BP 114/74; PULSE 75; TEMP 98
--- NOTE | 2022-03-08 19:04 | NUR ---
THE PATIENT IS SITTING IN THE NURSING STATION AT THIS TIME. DENIES ANY NEEDS. WOULD LIKE TO WALK AROUND THE MEDICAL FLOOR BY THE ELEVATORS.
[2022-03-08 23:55] VITALS: BP 113/64; PULSE 62; TEMP 97.6
[2022-03-09 07:17] VITALS: BP 112/66; PULSE 59; TEMP 98
[2022-03-09 16:50] VITALS: BP 125/76; PULSE 77; TEMP 98
--- NOTE | 2022-03-09 18:13 | NUR ---
Pt up and standing next to the door of her room. A&O x4. VSS. Requested to ambulate with staff members few times during the day. Doesn't express any concerns or needs at the time. Fall precautions remain in place. Call light within reach.
--- NOTE | 2022-03-09 20:12 | NUR ---
Patient assessed at this time. Denies having pain and discomfort. Not wanting to take medications tonight, except for Calcium. Explained purposes of medications, but continues to decline. Complained of upset stomach and given Sprite and saltine crackers as requested. Voices no further questions, needs, or concerns at this time. In recliner at this time. Call light within reach.
[2022-03-10 00:31] VITALS: BP 93/53; PULSE 64; TEMP 98.1
--- NOTE | 2022-03-10 05:47 | NUR ---
Patient in bed with call light within reach. Voices no questions, needs, or concerns.
--- NOTE | 2022-03-10 08:00 | NUR ---
Patient sitting up in bed, A&Ox4. VSS. No IV access, doctors aware. Denies pain and discomfort. Call light within reach
[2022-03-10 08:25] VITALS: BP 103/64; PULSE 79; TEMP 98.2
--- NOTE | 2022-03-10 13:29 | NUR ---
ABEL made phone call to [facility] who states they did not receive anythign from [facility] last thursday and there is nothing in their system for this patient. Phone call made to Meri ([phone]) at [facility] and informed her that [facility] did not get the assessment. Meri states that she will resend it to them with the confirmation request. She states that [facility] has until 03/14 to get the assessment done and back to her and she has until 03/17 to get it back to [facility].
--- NOTE | 2022-03-10 15:45 | NUR ---
Laura with [facility] called stating that she will be completing the patient's Level ll Assessment and that she is schedulign a zoom meeting to complete this at 1200 on Sunday 03/11. ABEL Cadena's number provided as she will be taking me spot.
[2022-03-10 16:14] VITALS: BP 100/53; PULSE 70; TEMP 97.8
--- NOTE | 2022-03-10 18:11 | NUR ---
Patient had an uneventful day. A&O, walking in the hallway and room. Steady on feet. VSS. No IV access. Denies pain and discomfort. Call light within reach
[2022-03-10 23:48] VITALS: BP 116/63; PULSE 62; TEMP 97.4
--- NOTE | 2022-03-11 02:39 | NUR ---
Patient assessed around 2109. Did refuse all medications this shift, stating that she took too many medications in the morning and does not want to take any more. Denies pain and discomfort. Voices no questions, needs, or concerns at this time. In bed with call light within reach.
[2022-03-11 07:12] VITALS: BP 121/73; PULSE 74; TEMP 97.6
--- NOTE | 2022-03-11 09:15 | NUR ---
Cd Technician contacted Laura at [facility] and confirmed [facility] Level II creen today at noon. Brett ANDREA updated. This Cd Technician to facilitate the screen virtually, as possible.
--- NOTE | 2022-03-11 11:00 | NUR ---
Patient alert and oriented. Aware of situation and curious as to next step. Wondering where she is to go next. Took all PO meds this morning, prefers to have them given to her at one time, not at the schedule pharmacy times. Patient independent in her room. Independent with hygine. No noticable skin concerns with what areas patient will allow assessment on. Patient very calm today. No IV access and no telemetry per provider order. Vitals Q8. Meds taken whole with water.
--- NOTE | 2022-03-11 12:25 | NUR ---
Media Production Support Manager attempted to facilitate patient Level II screen with [facility] screener by telehealth, and patient is unable to understand the screener. Screener Laura will arrive today to the hospital room at 1:30PM and a arcade attendant service will be coordinated. Media Production Support Manager to re-attempt facilitation of patient Level II screen for placement to [facility], referral pending.
--- NOTE | 2022-03-11 14:32 | NUR ---
Air Conditioning Mechanic notes [facility] ocampo for Level II now at patient bedside with patient and Natasha operator electronic warfare service, user experience analyst #[id number]. Screener has spoken with patient son/legal guardian. Patient expresses concern that she hasn't spoken to her son in many years and his spouse does not like her, fear she will "kill her." Her preference is to move to an apartment in [place], "It's beautiful there," but she is also agreeable to be placed at a safe facility where her care and needs will be met. Air Conditioning Mechanic received update from the screener that the documentation will be completed today and sent to the state. The state should be in contact with this Air Conditioning Mechanic in 1-2 days to help with placement recommendation and plan of care. Patient is updated, and she verbalizes understanding at this time. Social Work continues to follow. *Discharge plan: [facility] Level II placement* Hospitalist, PA, and RN updated on plan of care.
[2022-03-11 15:26] VITALS: BP 111/65; PULSE 71; TEMP 98.1
--- NOTE | 2022-03-11 18:29 | NUR ---
No change in status for patient. Patient took all meds except metamucil. Patient requested to take that med tomorrow morning. Patient had Level 2 amaya-psych screen with [facility] in room today. Results pending. Patient very plesant, independent in room. No complaints of pain. No medical concerns at this time.
--- NOTE | 2022-03-11 23:03 | NUR ---
PATIENT IS SITTING IN RECLINER ALERT AND ORIENTED AT TIME OF ASSESSMENT. PATIENT DENIES PAIN, CONCERNS OR NEEDS AT THIS TIME. CALL LIGHT IS WITHIN REACH.
[2022-03-11 23:20] VITALS: BP 119/65; PULSE 62; TEMP 98.3
--- NOTE | 2022-03-12 05:50 | NUR ---
PATIENT IS SLEEPING AT THIS TIME AND DID NOT WAKE FOR MORNING MEDICATIONS. NO SIGNS OF DISTRESS OR CONCERNS AT THIS TIME. CALL LIGHT IS WITHIN REACH OF PATIENT.
[2022-03-12 07:46] VITALS: BP 109/84; PULSE 75; TEMP 97.9
--- NOTE | 2022-03-12 08:38 | NUR ---
PT SITTING UP IN RECLINER. MORNING MEDICATIONS GIVEN. SHIFT ASSESSMENT COMPLETED. PT ORIENTED X2, STATES SHE IS AFRAID OF HER DOCTOR BECAUSE HE STANDS IN THE ROOM AND DOES NOT SPEAK. FOLLOWING VERBAL COMMANDS, ANSWERS MOST QUESTIONS APPROPRIATELY. WILL CONTINUE TO MONITOR.
[2022-03-12 16:11] VITALS: BP 113/67; PULSE 74; TEMP 97.6
[2022-03-12 23:58] VITALS: BP 121/69; PULSE 69; TEMP 97.7
--- NOTE | 2022-03-13 00:40 | NUR ---
PATIENT SITTING IN RECLINER WATCHING TELEVISION. PATIENT STATES SHE TAKES TOO MANY MEDICATIONS AND HER DOCTOR IS ON VACATION SO SHE IS UNABLE TO SPEAK WITH HIM. THIS NURSE PROVIDES MEDICATION EDUCATION AT THIS TIME. PATIENT DENIES ISSUES OR CONCERNS AT THIS TIME. CALL LIGHT IS WITHIN REACH.
--- NOTE | 2022-03-13 05:31 | NUR ---
PATIENT RESTING IN BED WITH EYES CLOSED. PATIENT CONTINUES TO REFUSE MEDICAITONS, HOWEVER WILL TAKE ALL ONCE PATIENT IS GIVEN EDUCATION ON EACH MEDICAITON. PATIENT SHOWS NO SIGNS OR SYMPTOMS OF PAIN OR DISTRESS. CALL LIGHT IS WITHIN REACH.
[2022-03-13 07:24] VITALS: BP 124/68; PULSE 74; TEMP 98
--- NOTE | 2022-03-13 08:47 | NUR ---
PT ALERT BUT CONFUSED THIS MORNING. PERFORMED SHIFT ASSESSMENT, ADMINISTERED MORNING MEDICATIONS. PT REFUSED LOVENOX STATING "NO SHOTS." PT WAS RELUCTANT TO TAKE MEDS STATING :THERE ARE TOO MANY," BUT WAS EVENTUALLY PERSUADED. VS WNL, BLOOD GLUCOSE 164.
[2022-03-13 16:09] VITALS: BP 104/46; PULSE 70; TEMP 98.1
[2022-03-14 00:13] VITALS: BP 112/68; PULSE 88; TEMP 97.6
--- NOTE | 2022-03-14 05:15 | NUR ---
ASSESSMENT COMPLETE FOR CHEMISTS. PT RESTING IN HER RECLINER WATCHING TV. PT REFUSED ALL MEDS THIS SHIFT, STATING, "TOO MUCH MEDS, WHY TOO MUCH MEDS? MAKE MY STOMACH HURT." I EXPLAINED WHY HER DRTena WANTED HER TO TAKE HER MEDS AND WHAT THEY WERE FOR. PT STILL REFUSED. PT DENIED PAIN, PALPITATIONS, N,V,D, SOB OR DIZZINESS. PT EXPRESSED NO ADDITIONAL NEEDS AT THIS TIME. CALL LIGHT WITHIN REACH.
[2022-03-14 08:15] VITALS: BP 127/69; PULSE 74; TEMP 98.2
--- NOTE | 2022-03-14 08:45 | NUR ---
PT SITTING UP IN RECLINER, EATING BREAKFAST. ORAL MORNING MEDICATIONS GIVEN. SHIFT ASSESSMENT COMPLETED. PT DENIES ANY PAIN OR NEEDS. WILL CONTINUE TO MONITOR.
[2022-03-14 16:13] VITALS: BP 112/68; PULSE 71; TEMP 97.6
[2022-03-15 07:13] VITALS: BP 121/71; PULSE 63; TEMP 98
--- NOTE | 2022-03-15 09:00 | NUR ---
Patient is sitting in bench, alert and oriented x 4, VSS. Has been refusing taking medications. Assessment completed. No further needs at this time. Call light within reach.
[2022-03-15 15:45] VITALS: BP 113/62; PULSE 75; TEMP 97.8
--- NOTE | 2022-03-15 18:26 | NUR ---
Patient has been stable along the day, some times accepts or refuses medications. She was walking on the halls with her walker. Report will be given to night RN.
--- NOTE | 2022-03-15 20:30 | NUR ---
Initial shift assessment done- very pleasant tonight, wanted me to sit down and talk with her- overal oriented, just not a clear view/understanding of what her situation is, she is overall cooperative tonight- also language is a barrier to totally understand her- does have some edema to right arm, also slight edema to bilateral lower extremities, and slight orbital edema, refuse about 1/2 of her meds but did take the Trazadone, Calcium, and Lipitor,, steady on her feet--walking around her room with walker.
[2022-03-16 00:06] VITALS: BP 131/79; PULSE 76; TEMP 97.9
--- NOTE | 2022-03-16 06:45 | NUR ---
Did not sleep - was up walking in her room, outside her door- watching what was going on in the halls-- states not tired, did finally sit in chair about 0500 and closed eyes for about 30 minutes and now up in room again,, did take her Synthroid and Pepcid this morning without questioning- VSS
[2022-03-16 08:01] VITALS: BP 128/72; PULSE 72; TEMP 98
--- NOTE | 2022-03-16 09:00 | NUR ---
Patient is sitting in chair, alert and oriented x 4, VSS. Denies pain, nausea or vomiting. States she had a bad night and was unable to sleep. Assessment completed, meds provided as pt accepted. No other needs at this time. Call light within reach.
[2022-03-16 16:00] VITALS: BP 118/80; PULSE 73; TEMP 97.9
--- NOTE | 2022-03-16 19:19 | NUR ---
Patient with no changes along the day. Continues refusing some medications. Stable VS and glucose. Report given to night RN.
--- NOTE | 2022-03-16 22:32 | NUR ---
Patient denies having pain and discomfort. Did not want to take medications tonight, stating that she has already taken too many medications today. Voices no questions, needs, or concerns at this time.
[2022-03-16 23:31] VITALS: BP 126/73; PULSE 58; TEMP 98.5
--- NOTE | 2022-03-17 06:10 | NUR ---
Patient in bed with call light within reach.
[2022-03-17 07:11] VITALS: BP 129/76; PULSE 77; TEMP 97.9
--- NOTE | 2022-03-17 08:58 | NUR ---
Phone call made this morning to [facility] and spoke with addiction social worker, Susana who states they have their morning meeting at 9 and willspeak with her team during that time about this patient. Susana states she will call me back around 1000 with an update.
--- NOTE | 2022-03-17 11:12 | NUR ---
Phone message left for Daniela at [facility] to follow up on their team meeting from this morning.
[2022-03-17 11:43] VITALS: BP 105/79; PULSE 78; TEMP 97.6
--- NOTE | 2022-03-17 13:03 | NUR ---
Level ll PASSRR determination letter received from [facility]. Patients clinical updates, along with letter and guardianship paperwork faxed to all Level ll facilities in [place].
[2022-03-17 15:17] VITALS: BP 119/70; PULSE 71; TEMP 97.2
--- NOTE | 2022-03-17 21:24 | NUR ---
Patient assessed around 1920. Denies having pain and discomfort. Does have minimal edema to BLE. Patient voices no questions, needs, or concerns at this time. Did decline medications, stating that she takes too many medications.
[2022-03-17 23:06] VITALS: BP 121/78; PULSE 73; TEMP 98.4
--- NOTE | 2022-03-18 05:42 | NUR ---
Patient in bed with call light within reach. Has voiced no questions, needs, or concerns this shift.
[2022-03-18 07:53] VITALS: BP 137/84; PULSE 74; TEMP 98.4
--- NOTE | 2022-03-18 08:00 | NUR ---
Pt sittng down in recliner, A&O x4. VSS. Pt requested water and asked hospitalist about it, Dr Calderon approved pt to drink 500ml of free water and 2000ml of total fluids per day. No other needs or concerns at the time. Fall precautions remain in place. Call light within reach.
--- NOTE | 2022-03-18 12:39 | NUR ---
[facility] denies referral due to being able to not meet the patients needs. [facility]- unable to accept referral due to no female beds at this time. Jaspal ROMAN spoke to [facility] who states that after review of the patients undates, they would like to establish a zoom meeting to meet the patient. Meeting scheduled for 03/19 @ 8030
--- NOTE | 2022-03-18 16:40 | NUR ---
Zoom meeting scheduled with Iván Castorena for tomorrow at 1100 via zoom
[2022-03-18 17:08] VITALS: BP 128/75; PULSE 75; TEMP 98.1
--- NOTE | 2022-03-18 18:25 | NUR ---
Pt denies any needs or concerns at the time. Pt has partial compliance to medication administration. Call light within reach.
--- NOTE | 2022-03-18 18:50 | NUR ---
ATTEMPTED TO BRING PATIENT HER MEDICATIONS AT THIS TIME. THE PATIENT STATES SHE ALREADY TOOK HER MEDICINE TODAY AND IS NOT GOING TO TAKE ANYMORE. WILL ATTEMPT ONE MORE TIME BEFORE 9PM. THE PATIENT IS CURRENTLY STANDING AT THE SINK BRUSHING HER TEETH. APPRECIATIVE OF THE CARE WE ARE GIVING, REQUESTS WHEN WE DO LAUNDRY. WILL REQUEST FOR SOME OF HER LAUNDRY TO BE WASHED. NO OTHER CONCERNS AT THIS TIME.
--- NOTE | 2022-03-18 20:06 | NUR ---
THE PATIENT IS NOT WILLING TO TAKE MEDICATIONS THIS EVENTING. 2 ATTEMPTS MADE TO GIVE THE MEDICATIONS, SHE STILL STATES SHE ONLY TAKES MEDICATIONS ONCE PER DAY. NO OTHER CONCERNS.
[2022-03-19 08:08] VITALS: BP 132/80; PULSE 80; TEMP 98.2
--- NOTE | 2022-03-19 09:00 | NUR ---
Pt assessment complete. Pt is ambulating in her room independently with a steady gait. Pt denies any pain. No SOB. Refuses some of her pills stating she won't take them outside of the hospital so she doesn't want them now. Explained reasoning for them, but patient still refuses. She has no needs at this time. Call light within reach.
--- NOTE | 2022-03-19 10:30 | NUR ---
Patient is sitting up un her chair, alert and oriented x 4, VSS. Denies pain at this time. Assessment completed. No other needsd at this time. Call light within reach.
[2022-03-19] MEDS ORDERED: LIPITOR 40MG TA40 MG PO (12:03)
[2022-03-19] MEDS ORDERED: LOPRESSOR 225 MG/TAB PO (12:04)
[2022-03-19] MEDS ORDERED: COZAAR 25MG25 MG/TAB PO (12:04)
[2022-03-19] MEDS ORDERED: DESYREL 50MG50 MG PO (12:05)
[2022-03-19 17:27] VITALS: BP 139/88; PULSE 74; TEMP 97.6
--- NOTE | 2022-03-19 19:05 | NUR ---
Patient has been stable along the day, refused medications and COVID test, educated about its need to be transfered. Report given to shift commander nurse.
--- NOTE | 2022-03-19 21:25 | NUR ---
THE PATIENT STATEWS THAT SHE IS ANXIOUS AND REQUESTS SOME ANXIETY MEDICATIONS AND SOMETHING FOR SLEEP. PATIENT ACCEPTS ATIVAN AND TRAZADONE, BUT REFUSES THE REST OF HER MEDICATIONS STATING " I ALREADY TAKEN THEM TODAY AND NO MORE FOR ME, SOMEONE MAKES A MISTAKE. I DON'T TAKE THAT MANY A DAY." NO OTHER CONCERNS.
[2022-03-19 23:38] VITALS: BP 116/74; PULSE 63; TEMP 98
[2022-03-20 07:30] VITALS: BP 127/77; PULSE 79; TEMP 97.9
--- NOTE | 2022-03-20 08:23 | NUR ---
Pt assessment complete. Pt is ambulatory in her room. She is A/O x4, her breathing is even and unlabored on RA. Pt denies SOB. Is ready for transfer to a new facility, worried about her clothes and the change of seasons. Pt in agreeance to let this nurse covid swab her. Compliant with her pills this am. No pain reported. PRN ativan administered for anxiety.
--- NOTE | 2022-03-20 11:19 | NUR ---
Patient will to provide covid swab this morning. [facility] ([facility] has accepted this patient for admission today. Patient's Medicaid information obtained from [facility] financial counselor and sent to accepting facility. Patient clinical updates, covid swab and discharge orders faxed to facility. Secure transportation arranged for flower picker at 1200. air conditioning supervisor, LAWRENCE, and patient notified. SW presented patient with transfer consent which she willing signed. Patient's son Zen contacted and provided update. Discharge plan: [facility]
--- NOTE | 2022-03-20 12:29 | NUR ---
Pt cooperative leaving with first security at this time.
== END 2022-03-20 12:29 | DRG 640 ==
LOC: COL.ER 18:39 → MEDICAL 21:00
PROVIDERS: Emergency Medicine; Internal Medicine; Physician Assistant; Student in an Organized Health Care Education/Training Program; ADMIT Internal Medicine
DX: E87.1 Hypo-osmolality and hyponatremia (principal); I21.A1 Myocardial infarction type 2; I50.23 Acute on chronic systolic (congestive) heart failure; J91.8 Pleural effusion in other conditions classified elsewhere; I11.0 Hypertensive heart disease with heart failure; E78.5 Hyperlipidemia, unspecified; E11.9 Type 2 diabetes mellitus without complications; J42 Unspecified chronic bronchitis; I25.10 Atherosclerotic heart disease of native coronary artery without angina pectoris; E86.1 Hypovolemia; E89.0 Postprocedural hypothyroidism; F22 Delusional disorders; E05.20 Thyrotoxicosis with toxic multinodular goiter without thyrotoxic crisis or storm; D50.9 Iron deficiency anemia, unspecified; K21.9 Gastro-esophageal reflux disease without esophagitis; F43.23 Adjustment disorder with mixed anxiety and depressed mood; I45.10 Unspecified right bundle-branch block; E83.51 Hypocalcemia; Z53.29 Procedure and treatment not carried out because of patient's decision for other reasons; K59.00 Constipation, unspecified; Z20.822 Contact with and (suspected) exposure to COVID-19; Z92.21 Personal history of antineoplastic chemotherapy; Z86.11 Personal history of tuberculosis; Z91.14 Patient's other noncompliance with medication regimen; Z86.718 Personal history of other venous thrombosis and embolism; Z90.710 Acquired absence of both cervix and uterus; Z90.89 Acquired absence of other organs; Z90.11 Acquired absence of right breast and nipple; Z88.0 Allergy status to penicillin; Z79.84 Long term (current) use of oral hypoglycemic drugs; Z79.890 Hormone replacement therapy
CPT/HCPCS: OP; 99231-AI; 99232-AI; 99233-AI; A9270; G0378; J0610; J1650; J1815; J1940; J2765; J3475; J7030; J7131